=== PATIENT | male | born 1960 | race Caucasian/White ===

== ENCOUNTER 2019-09-09 19:43 | Emergency (ER) | payer OTHER, MEDICAID ==
[~2019-09-09] VITALS: Ht 175.2 cm; Wt 140.9 kg
[~2019-09-09 19:43] MED LIST: ACHD5005 PO; IBP800T PO
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
[2019-09-09] MEDS ORDERED: RT-ALBUTEROL/IPRATROPIUM 3 ML (DUONEB) VIAL INH ONE (20:15)
[2019-09-09 20:20] VITALS: BP 154/89
[2019-09-09 20:22] LABS: BASOPHILS % (AUTO) 0 % (0-10); EOSINOPHILS # (AUTO) 0.2 10^3/uL (0.0-0.3); EOSINOPHILS % (AUTO) 2 % (0-10); HEMATOCRIT 45 % (40-54); HEMOGLOBIN 14.8 G/DL (13.3-17.7); LYMPHOCYTES # (AUTO) 1.6 X 10^3 (1.0-4.0); LYMPHOCYTES % (AUTO) 17 % (12-44); MEAN CORPUSCULAR HEMOGLOBIN 30 PG (25-34); MEAN CORPUSCULAR HGB CONC 33 G/DL (32-36); MEAN CORPUSCULAR VOLUME 91 FL (80-99); MONOCYTES # (AUTO) 0.8 X 10^3 (0.0-1.0); MONOCYTES % (AUTO) 9 % (0-12); NEUTROPHILS # (AUTO) 7.1 X 10^3 (1.8-7.8); NEUTROPHILS % (AUTO) 73 % (42-75); PLATELET COUNT 184 10^3/uL (130-400); RED CELL DISTRIBUTION WIDTH 14.1 % (10.0-14.5); WHITE BLOOD COUNT 9.7 10^3/uL (4.3-11.0)
[2019-09-09 20:41] LABS: ALANINE AMINOTRANSFERASE 26 U/L (0-55); ALBUMIN 4.2 GM/DL (3.2-4.5); ALKALINE PHOSPHATASE 88 U/L (40-136); BILIRUBIN,TOTAL 0.4 MG/DL (0.1-1.0); BUN/CREATININE RATIO 19; CALCIUM 9.1 MG/DL (8.5-10.1); CARBON DIOXIDE 25 MMOL/L (21-32); CHLORIDE 107 MMOL/L (98-107); CREATININE SERUM 1.05 MG/DL (0.60-1.30); GFR ESTIMATED > 60; GLUCOSE 94 MG/DL (70-105); POTASSIUM 4.1 MMOL/L (3.6-5.0); SODIUM 140 MMOL/L (135-145)
== END 2019-09-09 20:33 | disposition left against medical advice (07) ==
LOC: EDUNIT# 19:43 → ER 19:45
DX: R06.00 Dyspnea, unspecified (principal); J44.9 Chronic obstructive pulmonary disease, unspecified; I10 Essential (primary) hypertension; F41.9 Anxiety disorder, unspecified; R40.2142 Coma scale, eyes open, spontaneous, at arrival to emergency department; R40.2252 Coma scale, best verbal response, oriented, at arrival to emergency department; R40.2362 Coma scale, best motor response, obeys commands, at arrival to emergency department; F17.210 Nicotine dependence, cigarettes, uncomplicated; V49.40XA Driver injured in collision with unspecified motor vehicles in traffic accident, initial encounter
CPT/HCPCS: 36415; 80053; 85025; 86141

== ENCOUNTER → 2020-06-10 | Outpatient (CLI) | payer MEDICAID | LOC: CARD 10:56 | PROVIDERS: ATTEND Internal Medicine Cardiovascular Disease | DX: I11.9 Hypertensive heart disease without heart failure (principal); I31.3 Pericardial effusion (noninflammatory); E78.2 Mixed hyperlipidemia; J43.9 Emphysema, unspecified; F17.210 Nicotine dependence, cigarettes, uncomplicated | CPT/HCPCS: 93306 ==

== ENCOUNTER → 2020-08-02 | Outpatient (CLI) | payer MEDICAID | LOC: WOUNDCARE 09:17 | PROVIDERS: ATTEND Surgery | DX: I70.261 Atherosclerosis of native arteries of extremities with gangrene, right leg (principal); L97.513 Non-pressure chronic ulcer of other part of right foot with necrosis of muscle; R73.09 Other abnormal glucose; M65.171 Other infective (teno)synovitis, right ankle and foot; G60.8 Other hereditary and idiopathic neuropathies; I82.501 Chronic embolism and thrombosis of unspecified deep veins of right lower extremity | CPT/HCPCS: 11043; A6260; G0463 ==

== ENCOUNTER → 2020-08-03 | Outpatient (CLI) | payer MEDICAID ==
--- NOTE | 2020-08-03 14:44 | Diagnostic Imaging Report ---
INDICATION: Right leg pain. Right leg venous Doppler study was performed in the routine fashion with color flow Doppler and waveform analysis. FINDINGS: The right common femoral vein, superficial femoral vein, popliteal vein and visualized portion of the tibial veins show normal compressibility and venous flow patterns. There is normal augmentation. IMPRESSION: No evidence of deep vein thrombosis of the major veins of the right leg. Dictated by: Dictated on workstation # [id number]
== END ==
LOC: RAD 13:30
PROVIDERS: ATTEND Surgery
DX: I70.235 Atherosclerosis of native arteries of right leg with ulceration of other part of foot (principal); I82.501 Chronic embolism and thrombosis of unspecified deep veins of right lower extremity; M65.171 Other infective (teno)synovitis, right ankle and foot; G60.8 Other hereditary and idiopathic neuropathies; L97.513 Non-pressure chronic ulcer of other part of right foot with necrosis of muscle; R73.09 Other abnormal glucose

== ENCOUNTER → 2020-08-09 | Outpatient (CLI) | payer MEDICAID | LOC: WOUNDCARE 12:26 | PROVIDERS: ATTEND Surgery | DX: I96 Gangrene, not elsewhere classified (principal); M65.171 Other infective (teno)synovitis, right ankle and foot; G60.8 Other hereditary and idiopathic neuropathies; R73.09 Other abnormal glucose; L97.516 Non-pressure chronic ulcer of other part of right foot with bone involvement without evidence of necrosis | CPT/HCPCS: 11043; G0463 ==

== ENCOUNTER → 2020-08-09 | Outpatient (CLI) | payer MEDICAID | LOC: LAB 13:21 | PROVIDERS: ATTEND Surgery | DX: I70.235 Atherosclerosis of native arteries of right leg with ulceration of other part of foot (principal); L97.513 Non-pressure chronic ulcer of other part of right foot with necrosis of muscle; G60.8 Other hereditary and idiopathic neuropathies; M65.171 Other infective (teno)synovitis, right ankle and foot; I82.501 Chronic embolism and thrombosis of unspecified deep veins of right lower extremity; R73.09 Other abnormal glucose | CPT/HCPCS: 36415; 83036 ==

== ENCOUNTER → 2020-08-16 | Outpatient (CLI) | payer MEDICAID | LOC: WOUNDCARE 12:26 | PROVIDERS: ATTEND Surgery | DX: I96 Gangrene, not elsewhere classified (principal); L97.516 Non-pressure chronic ulcer of other part of right foot with bone involvement without evidence of necrosis; R73.09 Other abnormal glucose; M65.171 Other infective (teno)synovitis, right ankle and foot; G60.8 Other hereditary and idiopathic neuropathies | CPT/HCPCS: 11042; A6207; A6454; G0463 ==

== ENCOUNTER → 2020-08-18 | Outpatient (CLI) | payer MEDICAID | LOC: WOUNDCARE 12:28 | PROVIDERS: ATTEND Surgery | DX: L97.516 Non-pressure chronic ulcer of other part of right foot with bone involvement without evidence of necrosis (principal); G60.8 Other hereditary and idiopathic neuropathies; M65.871 Other synovitis and tenosynovitis, right ankle and foot; R73.09 Other abnormal glucose | CPT/HCPCS: 11043; A6454; G0463 ==

== ENCOUNTER → 2020-08-22 | Outpatient (CLI) | payer MEDICAID | LOC: WOUNDCARE 14:09 | PROVIDERS: ATTEND Surgery | DX: L97.516 Non-pressure chronic ulcer of other part of right foot with bone involvement without evidence of necrosis (principal); G60.8 Other hereditary and idiopathic neuropathies; M65.171 Other infective (teno)synovitis, right ankle and foot; I96 Gangrene, not elsewhere classified; R73.09 Other abnormal glucose | CPT/HCPCS: 11042; A6454; G0463 ==

== ENCOUNTER → 2020-08-29 | Outpatient (CLI) | payer MEDICAID | LOC: WOUNDCARE 13:28 | PROVIDERS: ATTEND Surgery | DX: I96 Gangrene, not elsewhere classified (principal); L97.512 Non-pressure chronic ulcer of other part of right foot with fat layer exposed; G60.8 Other hereditary and idiopathic neuropathies; M65.171 Other infective (teno)synovitis, right ankle and foot | CPT/HCPCS: 11042; A6454; G0463 ==

== ENCOUNTER → 2020-09-05 | Outpatient (CLI) | payer MEDICAID | LOC: WOUNDCARE 13:36 | PROVIDERS: ATTEND Surgery | DX: I96 Gangrene, not elsewhere classified (principal); L97.512 Non-pressure chronic ulcer of other part of right foot with fat layer exposed; G60.8 Other hereditary and idiopathic neuropathies; M65.171 Other infective (teno)synovitis, right ankle and foot | CPT/HCPCS: 11042; A6454; G0463 ==

== ENCOUNTER → 2020-09-14 | Outpatient (CLI) | payer MEDICAID | LOC: WOUNDCARE 14:25 | PROVIDERS: ATTEND Surgery | DX: L97.512 Non-pressure chronic ulcer of other part of right foot with fat layer exposed (principal); G60.8 Other hereditary and idiopathic neuropathies; M65.171 Other infective (teno)synovitis, right ankle and foot; I96 Gangrene, not elsewhere classified | CPT/HCPCS: 11042; A6454; G0463 ==

== ENCOUNTER → 2020-09-19 | Outpatient (CLI) | payer MEDICAID | LOC: WOUNDCARE 13:14 | PROVIDERS: ATTEND Surgery | DX: I96 Gangrene, not elsewhere classified (principal); L97.512 Non-pressure chronic ulcer of other part of right foot with fat layer exposed; G60.8 Other hereditary and idiopathic neuropathies; M65.171 Other infective (teno)synovitis, right ankle and foot | CPT/HCPCS: 11043 ==

== ENCOUNTER → 2020-09-21 | Outpatient (CLI) | payer MEDICAID | LOC: WOUNDCARE 08:21 | PROVIDERS: ATTEND Surgery | DX: I96 Gangrene, not elsewhere classified (principal); L97.512 Non-pressure chronic ulcer of other part of right foot with fat layer exposed; G60.8 Other hereditary and idiopathic neuropathies; M65.171 Other infective (teno)synovitis, right ankle and foot | CPT/HCPCS: 11043; G0463 ==

== ENCOUNTER → 2020-09-26 | Outpatient (CLI) | payer MEDICAID | LOC: WOUNDCARE 13:33 | PROVIDERS: ATTEND Surgery | DX: I96 Gangrene, not elsewhere classified (principal); L97.512 Non-pressure chronic ulcer of other part of right foot with fat layer exposed; M65.171 Other infective (teno)synovitis, right ankle and foot; G60.8 Other hereditary and idiopathic neuropathies | CPT/HCPCS: 11042; G0463 ==

== ENCOUNTER → 2020-10-03 | Outpatient (CLI) | payer MEDICAID | LOC: WOUNDCARE 12:44 | PROVIDERS: ATTEND Surgery | DX: L97.512 Non-pressure chronic ulcer of other part of right foot with fat layer exposed (principal); G60.8 Other hereditary and idiopathic neuropathies; M65.171 Other infective (teno)synovitis, right ankle and foot; I96 Gangrene, not elsewhere classified | CPT/HCPCS: 11042; A6234; G0463 ==

== ENCOUNTER → 2020-10-03 | Outpatient (CLI) | payer MEDICAID ==
[2020-10-03 12:46] LABS: BASOPHILS % (AUTO) 1 % (0-10); EOSINOPHILS # (AUTO) 0.2 10^3/uL (0.0-0.3); EOSINOPHILS % (AUTO) 3 % (0-10); HEMATOCRIT 43 % (40-54); HEMOGLOBIN 13.9 g/dL (13.3-17.7); LYMPHOCYTES # (AUTO) 1.3 10^3/uL (1.0-4.0); LYMPHOCYTES % (AUTO) 21 % (12-44); MEAN CORPUSCULAR HEMOGLOBIN 30 pg (25-34); MEAN CORPUSCULAR HGB CONC 33 g/dL (32-36); MEAN CORPUSCULAR VOLUME 93 fL (80-99); MEAN PLATELET VOLUME 8.6 fL (9.0-12.2); MONOCYTES # (AUTO) 0.6 10^3/uL (0.0-1.0); MONOCYTES % (AUTO) 9 % (0-12); NEUTROPHILS # (AUTO) 4.1 10^3/uL (1.8-7.8); NEUTROPHILS % (AUTO) 65 % (42-75); PLATELET COUNT 143 10^3/uL (130-400); WHITE BLOOD COUNT 6.3 10^3/uL (4.3-11.0)
[2020-10-03 13:11] LABS: ALANINE AMINOTRANSFERASE 26 U/L (0-55); ALBUMIN 3.9 GM/DL (3.2-4.5); ALKALINE PHOSPHATASE 84 U/L (40-136); BILIRUBIN,TOTAL 0.4 MG/DL (0.1-1.0); BUN/CREATININE RATIO 11; CALCIUM 8.6 MG/DL (8.5-10.1); CARBON DIOXIDE 25 MMOL/L (21-32); CHLORIDE 103 MMOL/L (98-107); CREATININE SERUM 0.99 MG/DL (0.60-1.30); GFR ESTIMATED > 60; GLUCOSE 123 MG/DL (70-105); POTASSIUM 4.1 MMOL/L (3.6-5.0); SODIUM 137 MMOL/L (135-145)
== END ==
LOC: LAB 12:31
PROVIDERS: ATTEND Surgery
DX: Z01.89 Encounter for other specified special examinations (principal)
CPT/HCPCS: 36415; 80053; 85025

== ENCOUNTER 2020-10-10 14:09 | Emergency (ER) | payer MEDICAID ==
--- NOTE | 2020-10-10 14:24 | NUR ---
PT STATES UNABLE TO STAY IN ED FOR VISIT HAS PLANS THIS AFTERNOON. EXPLAINED TO PT THAT HE HAD FEVER AND NEEDS TO BE CHECKED. PT STATES IF GETS WORSE WILL COME BACK
== END 2020-10-10 14:24 | disposition left against medical advice (07) ==
LOC: EDUNIT# 14:09 → ER 14:10
DX: R06.02 Shortness of breath (principal); R50.9 Fever, unspecified

== ENCOUNTER → 2020-10-10 | Outpatient (CLI) | payer MEDICAID | LOC: WOUNDCARE 13:02 | PROVIDERS: ATTEND Surgery | DX: I96 Gangrene, not elsewhere classified (principal); L97.512 Non-pressure chronic ulcer of other part of right foot with fat layer exposed; G60.8 Other hereditary and idiopathic neuropathies; M65.871 Other synovitis and tenosynovitis, right ankle and foot; R06.02 Shortness of breath; R50.9 Fever, unspecified | CPT/HCPCS: 11042; A6197; G0463 ==

== ENCOUNTER → 2020-10-17 | Outpatient (CLI) | payer MEDICAID | LOC: WOUNDCARE 13:21 | PROVIDERS: ATTEND Surgery | DX: L97.512 Non-pressure chronic ulcer of other part of right foot with fat layer exposed (principal); G60.8 Other hereditary and idiopathic neuropathies; M65.871 Other synovitis and tenosynovitis, right ankle and foot | CPT/HCPCS: 11042; A6454; G0463 ==

== ENCOUNTER → 2020-10-24 | Outpatient (CLI) | payer MEDICAID ==
--- NOTE | 2020-10-25 08:33 | Diagnostic Imaging Report ---
PROCEDURE: US Bilateral lower extremity arterial. TECHNIQUE: Multiple real-time grayscale images are obtained through both lower extremity arterial systems with color Doppler imaging and color Doppler spectral analysis. 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 CORRELATION STUDY: None FINDINGS: The major arteries of both lower extremities are patent to level of the ankle. There is detectable flow in the dorsalis pedis and posterior tibial arteries of both legs. Overall, there is no appreciable velocity change within the major arteries through the level of the popliteal arteries. Below the tibial peroneal trifurcation, there are various velocity changes, greatest on the right compared to the left. This does raise concern for underlying small vessel disease. There is rather markedly elevated velocity at the dorsalis pedis artery on the right suggestive of narrowing. IMPRESSION: 1. Patency of the major arteries of both lower extremities. The findings do suggest probable small vessel disease below the tibial peroneal trifurcation right greater than left. Dictated by: Dictated on workstation # [id number]
== END ==
LOC: RAD 12:12
PROVIDERS: ATTEND Surgery
DX: I70.235 Atherosclerosis of native arteries of right leg with ulceration of other part of foot (principal); L97.512 Non-pressure chronic ulcer of other part of right foot with fat layer exposed; M65.171 Other infective (teno)synovitis, right ankle and foot; G60.8 Other hereditary and idiopathic neuropathies
CPT/HCPCS: 93925

== ENCOUNTER → 2020-10-26 | Outpatient (CLI) | payer MEDICAID | LOC: WOUNDCARE 14:13 | PROVIDERS: ATTEND Surgery | DX: I96 Gangrene, not elsewhere classified (principal); L97.512 Non-pressure chronic ulcer of other part of right foot with fat layer exposed; G60.8 Other hereditary and idiopathic neuropathies; M65.171 Other infective (teno)synovitis, right ankle and foot | CPT/HCPCS: 11042; A6454; G0463 ==

== ENCOUNTER → 2020-11-07 | Outpatient (CLI) | payer MEDICAID | LOC: WOUNDCARE 13:39 | PROVIDERS: ATTEND Surgery | DX: I96 Gangrene, not elsewhere classified (principal); G60.8 Other hereditary and idiopathic neuropathies; M65.171 Other infective (teno)synovitis, right ankle and foot; L97.512 Non-pressure chronic ulcer of other part of right foot with fat layer exposed | CPT/HCPCS: 11042; A6454; G0463 ==

== ENCOUNTER → 2020-11-17 | Outpatient (CLI) | payer MEDICAID | LOC: WOUNDCARE 13:22 | PROVIDERS: ATTEND Orthopaedic Surgery Hand Surgery | DX: I96 Gangrene, not elsewhere classified (principal); L97.512 Non-pressure chronic ulcer of other part of right foot with fat layer exposed; G60.8 Other hereditary and idiopathic neuropathies; M65.171 Other infective (teno)synovitis, right ankle and foot | CPT/HCPCS: 11042; A6454; G0463 ==

== ENCOUNTER → 2020-11-28 | Outpatient (CLI) | payer MEDICAID | LOC: WOUNDCARE 13:38 | PROVIDERS: ATTEND Orthopaedic Surgery Hand Surgery | DX: I96 Gangrene, not elsewhere classified (principal); M65.871 Other synovitis and tenosynovitis, right ankle and foot; L97.512 Non-pressure chronic ulcer of other part of right foot with fat layer exposed; G60.8 Other hereditary and idiopathic neuropathies | CPT/HCPCS: 11042; G0463 ==

== ENCOUNTER → 2020-12-06 | Outpatient (CLI) | payer MEDICAID | LOC: WOUNDCARE 11:37 | PROVIDERS: ATTEND Surgery | DX: I96 Gangrene, not elsewhere classified (principal); L97.512 Non-pressure chronic ulcer of other part of right foot with fat layer exposed; G60.8 Other hereditary and idiopathic neuropathies; M65.171 Other infective (teno)synovitis, right ankle and foot | CPT/HCPCS: 11042; G0463 ==

== ENCOUNTER → 2021-01-12 | Outpatient (CLI) | payer MEDICAID | LOC: WOUNDCARE 12:48 | PROVIDERS: ATTEND Surgery | DX: I96 Gangrene, not elsewhere classified (principal); L97.512 Non-pressure chronic ulcer of other part of right foot with fat layer exposed; G60.8 Other hereditary and idiopathic neuropathies; M65.871 Other synovitis and tenosynovitis, right ankle and foot | CPT/HCPCS: 11042; A6197; G0463 ==

== ENCOUNTER → 2021-01-25 | Outpatient (CLI) | payer MEDICAID | LOC: WOUNDCARE 14:07 | PROVIDERS: ATTEND Surgery | DX: L97.512 Non-pressure chronic ulcer of other part of right foot with fat layer exposed (principal); G60.8 Other hereditary and idiopathic neuropathies; M65.171 Other infective (teno)synovitis, right ankle and foot | CPT/HCPCS: 99212 ==

== ENCOUNTER 2021-06-13 17:24 | Emergency (ER) | payer MEDICAID ==
[~2021-06-13] VITALS: Ht 172.7 cm; Wt 149.0 kg
[2021-06-13] MEDS ORDERED: LACTATED RINGERS IV PRN (18:00)
--- NOTE | 2021-06-13 18:00 | ED Integumentary General ---
General Chief Complaint: Skin/Wound Problems Stated Complaint: INFECTION IN R FOOT Source: patient Exam Limitations: no limitations History of Present Illness Date Seen by Provider: Jun 13, 2021 Time Seen by Provider: 17:57 Initial Comments To ER with infection in the right foot. History of a diabetic ulcer for which he saw Dr. Leone here at wound care. Was seen at [facility] today and there was concern for an abscess to the right lateral foot plantar surface he was referred to the emergency room. He did report a fever last night. Timing/Duration: week, getting worse Severity: moderate Possible Cause: no cause identified Associated Symptoms: denies symptoms Allergies and Home Medications Allergies Coded Allergies: No Known Drug Allergies (Unverified , 12/30/11) Home Medications Ciprofloxacin HCl 500 Mg Tablet, 500 MG PO BID Prescribed by: ARVIND EASTMAN on 06/13/212012 Doxycycline Hyclate 100 Mg Tablet, 100 MG PO BID Prescribed by: ARVIND EASTMAN on 06/13/212012 Hydrocodone Bit/Acetaminophen 1 Each Tablet, 1-2 EACH PO Q6H PRN Prescribed by: GAYATHRI SU on 12/30/111949 Ibuprofen 800 Mg Tab, 800 MG PO Q8H, (Reported) Patient Home Medication List Home Medication List Reviewed: Yes Review of Systems Review of Systems Constitutional: see HPI EENTM: see HPI Respiratory: no symptoms reported Cardiovascular: no symptoms reported Genitourinary: no symptoms reported Musculoskeletal: no symptoms reported Skin: no symptoms reported Psychiatric/Neurological: No Symptoms Reported Endocrine: No Symptoms Reported Hematologic/Lymphatic: No Symptoms Reported Past Hzxjvne-Txvbpl-Qmbphq Hx Past Medical History Surgeries: Yes Orthopedic Respiratory: Yes COPD Cardiac: Yes Hypertension Endocrine: No Cancer: No Anxiety Integumentary: No Blood Disorders: No Physical Exam Vital Signs Vital Signs - First Documented 06/13/21 17:29 Temp 36.9 Pulse 106 Resp 22 B/P (MAP) 113/75 (88) Pulse Ox 94 O2 Delivery Room Air Capillary Refill : General Appearance: WD/WN, no apparent distress HEENT: PERRL/EOMI, normal ENT inspection Neck: non-tender, full range of motion Respiratory: no respiratory distress, no accessory muscle use Gastrointestinal: normal bowel sounds, non tender Neurologic/Psychiatric: alert, normal mood/affect, oriented x 3 Skin: normal color, warm/dry Skin Problem Location: lower extremities (There is an abscess to the plantar surface of the right foot over the distal aspect of the fifth metatarsal. The overlying skin was removed with an 11 blade scalpel and scissors. Large amount of foul-smelling purulent material was expressed.) Skin Problem Character: abscess Progress/Results/Core Measures Results/Orders Lab Results Laboratory Tests Test 06/13/21 18:00 06/13/21 19:03 Range/Units White Blood Count 13.8 H 4.3-11.0 10^3/uL Red Blood Count 4.62 4.30-5.52 10^6/uL Hemoglobin 13.3 13.3-17.7 g/dL Hematocrit 41 40-54 % Mean Corpuscular Volume 89 80-99 fL Mean Corpuscular Hemoglobin 29 25-34 pg Mean Corpuscular Hemoglobin Concent 33 32-36 g/dL Red Cell Distribution Width 14.5 10.0-14.5 % Platelet Count 166 130-400 10^3/uL Mean Platelet Volume 9.3 9.0-12.2 fL Immature Granulocyte % (Auto) 1 % Neutrophils (%) (Auto) 80 H 42-75 % Lymphocytes (%) (Auto) 11 L 12-44 % Monocytes (%) (Auto) 7 0-12 % Eosinophils (%) (Auto) 1 0-10 % Basophils (%) (Auto) 0 0-10 % Neutrophils # (Auto) 11.1 H 1.8-7.8 10^3/uL Lymphocytes # (Auto) 1.5 1.0-4.0 10^3/uL Monocytes # (Auto) 0.9 0.0-1.0 10^3/uL Eosinophils # (Auto) 0.1 0.0-0.3 10^3/uL Basophils # (Auto) 0.1 0.0-0.1 10^3/uL Immature Granulocyte # (Auto) 0.1 0.0-0.1 10^3/uL Sodium Level 137 135-145 MMOL/L Potassium Level 4.1 3.6-5.0 MMOL/L Chloride Level 100 98-107 MMOL/L Carbon Dioxide Level 27 21-32 MMOL/L Anion Gap 10 5-14 MMOL/L Blood Urea Nitrogen 14 7-18 MG/DL Creatinine 1.00 0.60-1.30 MG/DL Estimat Glomerular Filtration Rate 76 BUN/Creatinine Ratio 14 Glucose Level 113 H 70-105 MG/DL Lactic Acid Level 1.48 0.50-2.00 MMOL/L Calcium Level 8.6 8.5-10.1 MG/DL Corrected Calcium 8.8 8.5-10.1 MG/DL Total Bilirubin 0.6 0.1-1.0 MG/DL Aspartate Amino Transf (AST/SGOT) 33 5-34 U/L Alanine Aminotransferase (ALT/SGPT) 29 0-55 U/L Alkaline Phosphatase 72 40-136 U/L Total Protein 7.0 6.4-8.2 GM/DL Albumin 3.7 3.2-4.5 GM/DL Urine Color YELLOW Urine Clarity CLEAR Urine pH 5.5 5-9 Urine Specific Icard 1.015 L 1.016-1.022 Urine Protein NEGATIVE NEGATIVE Urine Glucose (UA) NEGATIVE NEGATIVE Urine Ketones NEGATIVE NEGATIVE Urine Nitrite NEGATIVE NEGATIVE Urine Bilirubin NEGATIVE NEGATIVE Urine Urobilinogen 0.2 < = 1.0 MG/DL Urine Leukocyte Esterase 1+ H NEGATIVE Urine RBC (Auto) NEGATIVE NEGATIVE Urine RBC NONE /HPF Urine WBC 10-25 H /HPF Urine Crystals PRESENT H /LPF Urine Amorphous Sediment FEW MIGUEL URATES H /LPF Urine Bacteria TRACE /HPF Urine Casts NONE /LPF Urine Mucus SMALL H /LPF Urine Culture Indicated CULTURE PENDING My Orders Orders - ARVIND EASTMAN APRN Cbc With Automated Diff (06/13/21 17:55) Comprehensive Metabolic Panel (06/13/21 17:55) Blood Culture (06/13/21 17:55) Sputum Culture (06/13/21 17:55) Urinalysis (06/13/21 17:55) Urine Culture (06/13/21 17:55) Protime With Inr (06/13/21 17:55) Partial Thromboplastin Time (06/13/21 17:55) Chest 1 View, Ap/Pa Only (06/13/21 17:55) Ed Iv/Invasive Line Start (06/13/21 17:55) Ed Iv/Invasive Line Start (06/13/21 17:55) Vital Signs Adult Sepsis Patie Q15M (06/13/21 17:55) O2 (06/13/21 17:55) Remove Rings In Anticipation O (06/13/21 17:55) Lactic Acid Analyzer (06/13/21 17:55) Lactated Ringers (Lr 1000 Ml Iv Solution (06/13/21 18:00) Foot, Right, 3 View (06/13/21 18:02) Wound Culture (06/13/21 18:04) Ceftriaxone (Rocephin) (06/13/21 19:30) Lactated Ringers (Lr 1000 Ml Iv Solution (06/13/21 19:45) Hydrocodone/Apap 5/325 Tablet (Lortab 5 (06/13/21 19:34) Rx-Hydrocodone/Apap 5-325 Mg (Rx-Vicodin (06/13/21 20:15) Doxycycline Hyclate Tablet (Vibramycin T (06/13/21 20:15) Medications Given in ED Current Medications Medications Dose Ordered Sig/Ziyad Route Start Time Stop Time Status Last Admin Dose Admin Acetaminophen/ Hydrocodone Bitart 1 ea STK-MED ONCE .ROUTE 06/13/21 19:34 06/13/21 19:38 DC 06/13/21 19:39 1 EA Ceftriaxone Sodium 2000 mg/ Sterile Water 20 ml @ 240 mls/hr ONCE ONCE IV 06/13/21 19:30 06/13/21 19:34 DC 06/13/21 19:39 240 MLS/HR Vital Signs/I&O 06/13/21 17:29 Temp 36.9 Pulse 106 Resp 22 B/P (MAP) 113/75 (88) Pulse Ox 94 O2 Delivery Room Air Diagnostic Imaging Diagonstic Imaging: Xray Comments NAME: FAMILIA WARE [facility] REC#: [id number] PT STATUS: REG ER : 1960 PHYSICIAN: ARVIND EASTMAN APRN ADMIT DATE: 06/13/21/ER Draft Date of Exam:06/13/21 FOOT, RIGHT, 3 VIEW INDICATION: Right 5th metatarsal ulceration and redness. TIME OF EXAM: 6:34 PM 3 views of the right foot were obtained. There appears to be a large skin ulcer just lateral to the right 5th MTP joint. The underlying bony structures appear intact. No bony destructive changes are seen to suggest osteomyelitis. No fractures are identified. There is a linear metallic density projected between the webspace of the 1st and 2nd metatarsals. This appears to be plantar based on the lateral view and may represent small foreign body. There are degenerative changes at the 1st MTP joint. Postoperative changes at the ankle are noted. There is dorsal soft tissue swelling. IMPRESSION: 1. Large ulcer crater in the soft tissues lateral to the 5th MTP joint. No underlying bony destructive changes are seen to suggest osteomyelitis. 2. Small linear metallic foreign body at the level of the 1st and 2nd metatarsal webspace plantar. Dictated on workstation # [id number] Dict: 06/13/211853 Trans: 06/13/211903 [facility] [id number] Interpreted by: LINDY SPENCER MD Electronically signed by: Departure Communication (Admissions) 2001-Discussed with him the need for admission but he is insistent that he wants to go home. As such I'll give him some oral doxycycline and Cipro so that he'll have both MRSA and Pseudomonas coverage at home. Family Conversation NAME: FAMILIA WARE MED REC#: [id number] PT STATUS: REG ER : 1960 PHYSICIAN: ARVIND EASTMAN APRN ADMIT DATE: 06/13/21/ER Signed Date of Exam:06/13/21 CHEST 1 VIEW, AP/PA ONLY INDICATION: Sepsis. TECHNIQUE: Single view chest 6:33 PM. CORRELATION STUDY: 08/06/2018 FINDINGS: Heart size enlarged, mediastinum is prominent, appearing increased from prior. Vasculature overall within normal limits. Some hypoventilation with crowding at the lung bases. No nina infiltrate. Old healed right clavicle fracture. IMPRESSION: 1. Heart size and mediastinum are enlarged and more prominent from prior. Etiology and/or significance is indeterminate. When patient is clinically able, a 2-view chest and/or CT imaging would be recommended. 2. Likely area of atelectasis and/or hypoventilation at the lung bases. No nina consolidating infiltrate. Dictated by: Dictated on workstation # [id number] Dict: 06/13/[id number] Trans: 06/13/211909 [facility] [id number] Interpreted by: DEEPAK ROBERTSON DO Electronically signed by: DEEPAK ROBERTSON DO 06/13/211909 NAME: FAMILIA WARE MED REC#: [id number] PT STATUS: REG ER : 1960 PHYSICIAN: ARVIND EASTMAN APRN ADMIT DATE: 06/13/21/ER Draft Date of Exam:06/13/21 FOOT, RIGHT, 3 VIEW INDICATION: Right 5th metatarsal ulceration and redness. TIME OF EXAM: 6:34 PM 3 views of the right foot were obtained. There appears to be a large skin ulcer just lateral to the right 5th MTP joint. The underlying bony structures appear intact. No bony destructive changes are seen to suggest osteomyelitis. No fractures are identified. There is a linear metallic density projected between the webspace of the 1st and 2nd metatarsals. This appears to be plantar based on the lateral view and may represent small foreign body. There are degenerative changes at the 1st MTP joint. Postoperative changes at the ankle are noted. There is dorsal soft tissue swelling. IMPRESSION: 1. Large ulcer crater in the soft tissues lateral to the 5th MTP joint. No underlying bony destructive changes are seen to suggest osteomyelitis. 2. Small linear metallic foreign body at the level of the 1st and 2nd metatarsal webspace plantar. Dictated on workstation # [id number] Dict: 06/13/21 1854 Trans: 06/13/21 1904 [facility] [id number] Interpreted by: LINDY SPENCER MD Electronically signed by: Impression Primary Impression: Ulcer of right foot Additional Impressions: Cellulitis of right leg Foreign body in right foot Disposition: ADMITTED INPATIENT Condition: Stable Departure-Patient Inst. Decision time for Depature: 19:59 Referrals: [facility] (PCP/Family) Primary Care Physician EAN LEONE MD Patient Instructions: Cellulitis (Skin Infection), Adult (DC) Add. Discharge Instructions: . Return promptly to ER for any worsening symptoms such as fevers increasing redness. All discharge instructions reviewed with patient and/or family. Voiced understanding. Scripts Doxycycline Hyclate (Doxycycline Hyclate) 100 Mg Tablet 100 MG PO BID, #14 TAB 0 Refills Prov: ARVIND EASTMAN APRN 06/13/21 Ciprofloxacin HCl (Ciprofloxacin HCl) 500 Mg Tablet 500 MG PO BID, #14 TAB Prov: ARVIND EASTMAN APRN 06/13/21 ARVIND EASTMAN APRN Jun 13, 2021 18:00
[2021-06-13 18:10] LABS: BASOPHILS # (AUTO) 0.1 10^3/uL (0.0-0.1); BASOPHILS % (AUTO) 0 % (0-10); EOSINOPHILS # (AUTO) 0.1 10^3/uL (0.0-0.3); EOSINOPHILS % (AUTO) 1 % (0-10); HEMATOCRIT 41 % (40-54); HEMOGLOBIN 13.3 g/dL (13.3-17.7); LYMPHOCYTES # (AUTO) 1.5 10^3/uL (1.0-4.0); LYMPHOCYTES % (AUTO) 11 % (12-44); MEAN CORPUSCULAR HEMOGLOBIN 29 pg (25-34); MEAN CORPUSCULAR HGB CONC 33 g/dL (32-36); MEAN CORPUSCULAR VOLUME 89 fL (80-99); MEAN PLATELET VOLUME 9.3 fL (9.0-12.2); MONOCYTES # (AUTO) 0.9 10^3/uL (0.0-1.0); MONOCYTES % (AUTO) 7 % (0-12); NEUTROPHILS # (AUTO) 11.1 10^3/uL (1.8-7.8); NEUTROPHILS % (AUTO) 80 % (42-75); PLATELET COUNT 166 10^3/uL (130-400); WHITE BLOOD COUNT 13.8 10^3/uL (4.3-11.0)
[2021-06-13 18:18] LABS: ALBUMIN 3.7 GM/DL (3.2-4.5); POTASSIUM 4.1 MMOL/L (3.6-5.0)
[2021-06-13 18:20] LABS: CALCIUM 8.6 MG/DL (8.5-10.1)
[2021-06-13 18:22] LABS: BILIRUBIN,TOTAL 0.6 MG/DL (0.1-1.0)
--- NOTE | 2021-06-13 19:01 | Diagnostic Imaging Report ---
INDICATION: Sepsis. TECHNIQUE: Single view chest 6:33 PM. CORRELATION STUDY: 08/06/2018 FINDINGS: Heart size enlarged, mediastinum is prominent, appearing increased from prior. Vasculature overall within normal limits. Some hypoventilation with crowding at the lung bases. No nina infiltrate. Old healed right clavicle fracture. IMPRESSION: 1. Heart size and mediastinum are enlarged and more prominent from prior. Etiology and/or significance is indeterminate. When patient is clinically able, a 2-view chest and/or CT imaging would be recommended. 2. Likely area of atelectasis and/or hypoventilation at the lung bases. No nina consolidating infiltrate. Dictated by: Dictated on workstation # [id number]
--- NOTE | 2021-06-13 19:04 | Diagnostic Imaging Report ---
INDICATION: Right 5th metatarsal ulceration and redness. TIME OF EXAM: 6:34 PM 3 views of the right foot were obtained. There appears to be a large skin ulcer just lateral to the right 5th MTP joint. The underlying bony structures appear intact. No bony destructive changes are seen to suggest osteomyelitis. No fractures are identified. There is a linear metallic density projected between the webspace of the 1st and 2nd metatarsals. This appears to be plantar based on the lateral view and may represent small foreign body. There are degenerative changes at the 1st MTP joint. Postoperative changes at the ankle are noted. There is dorsal soft tissue swelling. IMPRESSION: 1. Large ulcer crater in the soft tissues lateral to the 5th MTP joint. No underlying bony destructive changes are seen to suggest osteomyelitis. 2. Small linear metallic foreign body at the level of the 1st and 2nd metatarsal webspace plantar. Dictated by: Dictated on workstation # [id number]
[2021-06-13 19:09] LABS: BILIRUBIN,URINE NEGATIVE (NEGATIVE); CLARITY,URINE CLEAR; COLOR,URINE YELLOW; GLUCOSE, URINE (UA) NEGATIVE (NEGATIVE); KETONES,URINE NEGATIVE (NEGATIVE); LEUKOCYTE ESTERASE ,URINE 1+ (NEGATIVE); NITRITE,URINE NEGATIVE (NEGATIVE); PH,URINE 5.5 (5-9); PROTEIN,URINE NEGATIVE (NEGATIVE)
[2021-06-13 19:25] LABS: AMORPHOUS SEDIMENT,UR FEW AMOR URATES /LPF; BACTERIA,URINE TRACE /HPF
[2021-06-13] MEDS ORDERED: cefTRIAXone 2,000 MG in WATER (STERILE) FOR INJECTION 20 ML IV ONE (19:30)
[2021-06-13] MEDS ORDERED: HYDROcodone/APAP 5 MG/325 MG (LORTAB) TAB ONE (19:34)
[2021-06-13] MEDS ORDERED: LACTATED RINGERS 1,000 ML IV SCH (19:45)
[2021-06-13] MEDS ORDERED: DOXY100T2 PO (20:13)
[2021-06-13] MEDS ORDERED: CIPR500T5 PO (20:13)
[2021-06-13] MEDS ORDERED: DOXYCYCLINE 100 MG (VIBRAMYCIN) TABLET PO SCH (20:15)
[2021-06-13 20:49] VITALS: BP 114/79
== END 2021-06-13 20:50 | disposition other institution (70) ==
LOC: EDUNIT# 17:24 → ER 17:27
DX: E11.621 Type 2 diabetes mellitus with foot ulcer (principal); S90.851A Superficial foreign body, right foot, initial encounter; L03.115 Cellulitis of right lower limb; J44.9 Chronic obstructive pulmonary disease, unspecified; I10 Essential (primary) hypertension; X58.XXXA Exposure to other specified factors, initial encounter
CPT/HCPCS: 36415; 71045; 73630; 80053; 81000; 83605; 85025; 87040; 87070; 87088; 87205

== ENCOUNTER → 2021-06-19 | Outpatient (CLI) | payer MEDICAID ==
[~2021-06-19] MED LIST changes: +CIPR500T5 PO; +DOXY100T2 PO
== END ==
LOC: WOUNDCARE 09:20
PROVIDERS: ATTEND Surgery
DX: E11.621 Type 2 diabetes mellitus with foot ulcer (principal); E11.42 Type 2 diabetes mellitus with diabetic polyneuropathy; L97.512 Non-pressure chronic ulcer of other part of right foot with fat layer exposed; I70.235 Atherosclerosis of native arteries of right leg with ulceration of other part of foot; I89.0 Lymphedema, not elsewhere classified; T65.222A Toxic effect of tobacco cigarettes, intentional self-harm, initial encounter; F17.218 Nicotine dependence, cigarettes, with other nicotine-induced disorders; L03.115 Cellulitis of right lower limb
CPT/HCPCS: 11042; A6197; G0463

== ENCOUNTER → 2021-06-26 | Outpatient (CLI) | payer MEDICAID ==
[~2021-06-26] MED LIST changes: +ALBU1.25 INH; +ALBU90AE2 IH; +BUDE10.26 IH; +CELE-63 PO; +FLUT1AER IH; +LEVO25CA4 PO; +RT-ALBUINH IH; +TIOT18CA2 IH
== END ==
LOC: WOUNDCARE 11:58
PROVIDERS: ATTEND Surgery
DX: E11.621 Type 2 diabetes mellitus with foot ulcer (principal); E11.42 Type 2 diabetes mellitus with diabetic polyneuropathy; L97.512 Non-pressure chronic ulcer of other part of right foot with fat layer exposed; I70.235 Atherosclerosis of native arteries of right leg with ulceration of other part of foot; I89.0 Lymphedema, not elsewhere classified; T65.222A Toxic effect of tobacco cigarettes, intentional self-harm, initial encounter; L03.115 Cellulitis of right lower limb; E11.52 Type 2 diabetes mellitus with diabetic peripheral angiopathy with gangrene; F17.218 Nicotine dependence, cigarettes, with other nicotine-induced disorders
CPT/HCPCS: 11042; G0463

== ENCOUNTER → 2021-06-26 | Outpatient (CLI) | payer MEDICAID ==
[~2021-06-26] MED LIST changes: -ALBU1.25 INH; -ALBU90AE2 IH; -BUDE10.26 IH; -CELE-63 PO; -FLUT1AER IH; -LEVO25CA4 PO; -RT-ALBUINH IH; -TIOT18CA2 IH
== END ==
LOC: LAB 11:36
PROVIDERS: ATTEND Surgery
DX: R73.09 Other abnormal glucose (principal)
CPT/HCPCS: 36415; 83036

== ENCOUNTER → 2021-07-03 | Outpatient (CLI) | payer MEDICAID ==
[~2021-07-03] MED LIST changes: +ALBU1.25 INH; +ALBU90AE2 IH; +BUDE10.26 IH; +CELE-63 PO; +FLUT1AER IH; +LEVO25CA4 PO; +RT-ALBUINH IH; +TIOT18CA2 IH
== END ==
LOC: WOUNDCARE 12:10
PROVIDERS: ATTEND Surgery
DX: E11.621 Type 2 diabetes mellitus with foot ulcer (principal); E11.42 Type 2 diabetes mellitus with diabetic polyneuropathy; L97.512 Non-pressure chronic ulcer of other part of right foot with fat layer exposed; I89.0 Lymphedema, not elsewhere classified; T65.222A Toxic effect of tobacco cigarettes, intentional self-harm, initial encounter; E11.52 Type 2 diabetes mellitus with diabetic peripheral angiopathy with gangrene; F17.218 Nicotine dependence, cigarettes, with other nicotine-induced disorders
CPT/HCPCS: 11042; G0463

== ENCOUNTER 2021-07-04 05:36 | Outpatient (CLI) | payer MEDICAID ==
[~2021-07-04] VITALS: Ht 172.7 cm; Wt 144.2 kg
[~2021-07-04 05:36] MED LIST changes: -ALBU1.25 INH; -ALBU90AE2 IH; -BUDE10.26 IH; -CELE-63 PO; -FLUT1AER IH; -LEVO25CA4 PO; -RT-ALBUINH IH; -TIOT18CA2 IH
[2021-07-06] MEDS ORDERED: LEVO25CA4 PO (13:05)
[2021-07-06] MEDS ORDERED: BUDE10.26 IH (13:05)
[2021-07-06] MEDS ORDERED: TIOT18CA2 IH (13:05)
[2021-07-06] MEDS ORDERED: ALBU90AE2 IH (13:05)
[2021-07-06] MEDS ORDERED: ALBU1.25 INH (13:05)
[2021-07-06] MEDS ORDERED: CELE-63 PO (13:05)
[2021-07-06] MEDS ORDERED: RT-ALBUINH IH (13:05)
[2021-07-06] MEDS ORDERED: FLUT1AER IH (13:05)
== END 2021-07-06 14:12 ==
LOC: PREOP 05:36
PROVIDERS: ATTEND Surgery
DX: Z01.818 Encounter for other preprocedural examination (principal)

== ENCOUNTER → 2021-09-27 | Outpatient (CLI) | payer MEDICAID ==
[~2021-09-27] MED LIST changes: +ALBU1.25 INH; +ALBU90AE2 IH; +BUDE10.26 IH; +CELE-63 PO; +FLUT1AER IH; +LEVO25CA4 PO; +RT-ALBUINH IH; +TIOT18CA2 IH
== END ==
LOC: CARD 15:00
PROVIDERS: ATTEND Nurse Practitioner Family
DX: I51.7 Cardiomegaly (principal)
CPT/HCPCS: 93306

== ENCOUNTER → 2021-10-18 | Outpatient (CLI) | payer MEDICAID ==
[~2021-10-18] MED LIST changes: +REGADENOSON 0.4 MG/5 ML SYR (LEXISCAN) IV ONE
[2021-10-18] MEDS: CATHETER FLUSH 10 ML SYR IV PRN ×2 (07:52→09:18)
[2021-10-18 09:16] VITALS: BP 139/85
--- NOTE | 2021-10-18 11:11 | Cardiology Stress Test Report ---
Stress Test Report Date of Procedure/Referring: Date of Procedure: Oct 18, 2021 PCP Christel Hallman Aprn Admitting Physician Center[facility] Indications: Dyspnea Baseline Heart Rate: 79 Baseline Blood Pressure: Blood Pressure Systolic: 139 Blood Pressure Diastolic: 85 Baseline Vitals Vital Signs Date Time Temp Pulse Resp B/P (MAP) Pulse Ox O2 Delivery O2 Flow Rate FiO2 10/18/21 09:16 79 16 139/85 (103) 95 Room Air Baseline EKG: Baseline EKG: NSR Summary After explaining the procedure to the patient, he signed a consent and then brought to the stress nuclear laboratory. Patient received 0.4 mg Lexiscan for stress test, ECG, heart rate and blood pressure were monitored continuously. Resting and stress dose of radio tracer were injected, imaging was acquired and reviewed in short axis, horizontal long axis and vertical long axis views. TID: 1.15 SSS: 2 SDS: 2 EF: 55 1. Patient tolerated Lexiscan well 2. No significant ischemia or infarction on SPECT images 3. Normal left ventricular size, EF 55% NHAN FLOWER MD Oct 18, 2021 11:11
== END ==
LOC: CARD 07:37
PROVIDERS: ATTEND Nurse Practitioner Family
DX: R06.00 Dyspnea, unspecified (principal); R06.02 Shortness of breath
CPT/HCPCS: 78452; 93017; A9502

== ENCOUNTER 2022-02-28 19:34 | Observation (INO) | payer MEDICAID ==
[~2022-02-28] VITALS: Ht 173 cm; Wt 136.0 kg
[~2022-02-28 19:34] MED LIST changes: -REGADENOSON 0.4 MG/5 ML SYR (LEXISCAN) IV ONE
[2022-02-28] MEDS ORDERED: ASPIRIN 81 MG CHEW (CHILDREN'S ASA) PO ONE (19:45)
[2022-02-28] MEDS ORDERED: NITROGLYCERIN 0.4 MG SL TABS BTL 25'S SL PRN (19:45)
--- NOTE | 2022-02-28 19:47 | ED Chest Pain ---
General Stated Complaint: CHEST PAIN Source: patient (DIFFICULT HISTORIAN) History of Present Illness Date Seen by Provider: Feb 28, 2022 Time Seen by Provider: 19:38 Initial Comments PT ARRIVES VIA POV FROM HOME C/O CHEST PAIN SINCE YESTERDAY WAS SEEN AT [facility] YESTERDAY AND BEGAN HAVING CHEST PAIN WHEN HE ARRIVED THERE AND WAS INSTRUCTED TO GO TO ER--HE REFUSED EMS TRANSPORT AT THAT TIME, AND DID NOT COME TO ER YESTERDAY INSTRUCTED, AND CAME HERE TONIGHT INSTEAD. PAIN IS IN CENTER AND LEFT CHEST AND FEELS LIKE BAD CRAMPS RATES PAIN 4-5/10 AT THIS TIME WORSE WITH EXERTION HAS HAD INCREASED SHORTNESS OF BREATH X 1 WEEK--HAS O2 DEPENDENT COPD AT 2L/NC CONTINOUSLY. DOES NOT HAVE O2 ON ARRIVAL TO ER + SWEATS SINCE YESTERDAY + NAUSEA, NO VOMITING NO INCREASE IN CHRONIC LEG SWELLING--DESCRIBES PERIPHERAL NEUROPATHY--STATES LOWER LEGS AND FEET NUMB AND PAINFUL ALL THE TIME NO PALPITATIONS NO DIZZINESS NO SYNCOPE NO COUGH OR FEVER OR RECENT ILLNESS PT DENIES ANY HISTORY OF CARDIAC PROBLEMS, STATES HE HAD A STRESS TEST "A COUPLE OF MONTHS AGO" WAS DONE BY DR. FLOWER 10/18/21: 1. Patient tolerated Lexiscan well 2. No significant ischemia or infarction on SPECT images 3. Normal left ventricular size, EF 55% HAS NOT FOLLOWED UP WITH CREDIT CASHIER AT ANY TIME PT DENIES ANY HISTORY OF CARDIAC PROBLEMS, OR HTN, OR CHF, OR HYPERLIPIDEMIA OR ARRHYTHMIAS PCP: [facility] Allergies and Home Medications Allergies Coded Allergies: No Known Drug Allergies (Unverified , 12/30/11) Patient Home Medication List Home Medication List Reviewed: Yes Albuterol Sulfate (Albuterol Sulfate) 1.25 Mg/3 Ml Vial.neb, 1.25 MG INH PRN, (Reported) Entered as Reported by: MARIJA HINSON on 07/06/21 1305 Albuterol Sulfate (Proair Hfa) 1 Puff Puff, 2 PUFF IH Q4H PRN for PRN, (Reported) Entered as Reported by: MARIJA HINSON on 07/06/21 1305 Albuterol Sulfate (Proair Digihaler) 90 Mcg Aer.pw.bas, 90 MCG IH OID, (Reported) Entered as Reported by: MARIJA HINSON on 07/06/21 1305 Budesonide/Formoterol Fumarate (Budesonide-Formoterol 160-4.5) 10.2 Gm Hfa.aer.ad, 10.2 GM IH, (Reported) Entered as Reported by: MARIJA HINSON on 07/06/21 130 Celecoxib (Celecoxib) 200 Mg Capsule, 200 MG PO DAILY, (Reported) Entered as Reported by: MARIJA HINSON on 07/06/21 130 Fluticasone/Vilanterol (Breo Ellipta 100-25 Mcg INH) 1 Each Blst.w.dev, 1 EACH IH DAILY, (Reported) Entered as Reported by: MARIJA HINSON on 07/06/21 130 Levothyroxine Sodium (Levothyroxine) 25 Mcg Capsule, 25 MCG PO DAILY, (Reported) Entered as Reported by: MARIJA HINSON on 07/06/21 130 Tiotropium [place] (Spiriva) 1 Inh Aerp, 1 INH IH DAILY, (Reported) Entered as Reported by: MARIJA HINSON on 07/06/21 130 Review of Systems Review of Systems Constitutional: see HPI, diaphoresis; No dizziness EENTM: No Symptoms Reported Respiratory: See HPI, Orthopnea, Shortness of Air, SOA at Rest Cardiovascular: See HPI, Chest Pain, Edema; Denies Lightheadedness, Denies Palpitations, Denies Syncope Gastrointestinal: No Symptoms Reported; Denies Abdominal Pain, Denies Nausea, Denies Vomiting Genitourinary: No Symptoms Reported Musculoskeletal: no symptoms reported Skin: no symptoms reported Psychiatric/Neurological: Anxiety Endocrine: No Symptoms Reported Hematologic/Lymphatic: No Symptoms Reported Past Olvmcnl-Ikjjkf-Jqzlsr Hx Patient Social History Tobacco Use?: Yes Tobacco type used: Cigarettes Substance use?: Yes Substance type: Methamphetamine, Marijuana Additional substance use comme: + IV METH USE Alcohol Use?: Yes Alcohol Frequency: Once in a while Immunizations Up To Date First/Initial COVID19 Vaccinat: 12/25 Past Medical History Surgeries: Yes (RT ARM; RT LEG) Orthopedic Respiratory: Yes (O2 DEPENDENT AT 2L/NC CONTINUOUSLY) COPD Cardiac: Yes Chronic Edema/Swelling, High Cholesterol, Hypertension Neurological: Yes (? PERIPHERAL NEUROPATHY?) Genitourinary: No Gastrointestinal: Yes (HEPATITIS B &C--NO TREATMENT) Chronic Constipation, Hepatitis Musculoskeletal: Yes Arthritis Endocrine: Yes ("PRE-DIABETIC"; MORBID OBESITY) HEENT: Yes (EYE SURGERY DUE TO TRAUMA) Dysphagia, Tinnitis Hearing Impairment: Hard of Hearing, Hearing Aide Left Cancer: No Psychosocial: Yes (impulsive compulsive disorder; POLYSUBSTANCE ABUSE) Anxiety Integumentary: Yes (CHRONIC FOOT ULCER) Blood Disorders: No (HEP. C & B) Adverse Reaction/Blood Tranf: No Family Medical History SOCIAL HISTORY: -SMOKES 1 PPD -ETOH--"OCCASIONAL" USE -DRUGS--HX OF IV METH USE, THC USE--CLAIMS "NO USE FOR YEARS" , BUT UDS + FOR METH AND THC 02/28/22 PAST SURGICAL HISTORY:- -TONSILLECTOMY -RIGHT ARM FRACTURE/ORIF -RIGHT ANKLE FRACTURE/ORIF -EYE SURGERY SECONDARY TO TRAUMA STRESS TEST BY DR. FLOWER 10/18/21: 1. Patient tolerated Lexiscan well 2. No significant ischemia or infarction on SPECT images 3. Normal left ventricular size, EF 55% Physical Exam Vital Signs Vital Signs - First Documented 02/28/22 02/28/22 19:40 20:48 Temp 37.8 Pulse 96 Resp 20 B/P (MAP) 138/95 (109) Pulse Ox 96 O2 Delivery Nasal Cannula O2 Flow Rate 2.00 Capillary Refill : Height, Weight, BMI Height: '" Weight: lbs. oz. kg; 48.34 BMI Method:Stated General Appearance: No Apparent Distress, WD/WN, Obese (MORBIDLY OBESE), Other (MORBIDLY OBESE; DYSPNEIC; TALKS VERY RAPIDLY NON-STOP SPEECH IS MUMBLED. + DIAPHORETIC; FILTHY--HANDS BLACK WITH DIRT, IS CLOTHING, MALODOROUS, AND REEKS OF CIGARETTES. CONSTANT MOVEMENTS--CANT SIT OR LAY STILL. APPEARS TO BE UNDER THE INFLUENCE OF SOME SUBSTANCE/S) Neck: Non Tender Respiratory: Accessory Muscle Use, Decreased Breath Sounds (IN BASES), Other (DYSPNEIC AND HYPERVENTILATION ) Cardiovascular: Regular Rate, Rhythm, No Murmur Gastrointestinal: Soft, Other (VERY LARGE ABDOMEN) Extremity: Pedal Edema (1+ EDEMA) Neurologic/Psychiatric: Alert, Oriented x3, No Motor/Sensory Deficits, mental health unit lead psychologist II- XII Norm as Tested Skin: Normal Color, Warm/Dry, Tattoos/Piercings (EXTENSIVE TATTOOS) Focused Exam Sepsis Stage: Ruled Out Reason for ruling out sepsis: DOES NOT MEET CRITERIA Possible Source: Pulmonary Lactate Level 02/28/22 20:30: Lactic Acid Level 1.09 Time of Focused Exam: 21:30 Respiratory: Normal Breath Sounds, No Accessory Muscle Use, No Respiratory Distress Cardiovascular: Regular Rate, Rhythm Capillary Refill: Less Than 3 Seconds Lactic Acid Level Laboratory Tests Test 02/28/22 20:30 Lactic Acid Level 1.09 MMOL/L (0.50-2.00) Within 3hrs of presentation: Admin fluids, Admin ABX, Blood cultures prior to ABX's, Focus exam, Lactate level Progress/Results/Core Measures Results/Orders Lab Results Laboratory Tests Test 02/28/22 19:50 02/28/22 19:52 02/28/22 20:30 02/28/22 20:35 Range/Units White Blood Count 9.7 4.3-11.0 10^3/uL Red Blood Count 4.85 4.30-5.52 10^6/uL Hemoglobin 14.2 13.3-17.7 g/dL Hematocrit 44 40-54 % Mean Corpuscular Volume 90 80-99 fL Mean Corpuscular Hemoglobin 29 25-34 pg Mean Corpuscular Hemoglobin Concent 33 32-36 g/dL Red Cell Distribution Width 14.3 10.0-14.5 % Platelet Count 173 130-400 10^3/uL Mean Platelet Volume 9.0 9.0-12.2 fL Immature Granulocyte % (Auto) 1 % Neutrophils (%) (Auto) 72 42-75 % Lymphocytes (%) (Auto) 16 12-44 % Monocytes (%) (Auto) 7 0-12 % Eosinophils (%) (Auto) 3 0-10 % Basophils (%) (Auto) 1 0-10 % Neutrophils # (Auto) 7.0 1.8-7.8 10^3/uL Lymphocytes # (Auto) 1.6 1.0-4.0 10^3/uL Monocytes # (Auto) 0.7 0.0-1.0 10^3/uL Eosinophils # (Auto) 0.3 0.0-0.3 10^3/uL Basophils # (Auto) 0.1 0.0-0.1 10^3/uL Immature Granulocyte # (Auto) 0.1 0.0-0.1 10^3/uL Prothrombin Time 13.6 12.2-14.7 SEC INR Comment 1.0 0.8-1.4 Activated Partial Thromboplast Time 31 24-35 SEC D-Dimer 0.47 0.00-0.49 UG/ML Sodium Level 139 135-145 MMOL/L Potassium Level 4.3 3.6-5.0 MMOL/L Chloride Level 101 98-107 MMOL/L Carbon Dioxide Level 26 21-32 MMOL/L Anion Gap 12 5-14 MMOL/L Blood Urea Nitrogen 16 7-18 MG/DL Creatinine 1.08 0.60-1.30 MG/DL Estimat Glomerular Filtration Rate 77 BUN/Creatinine Ratio 15 Glucose Level 120 H 70-105 MG/DL Calcium Level 9.1 8.5-10.1 MG/DL Corrected Calcium 9.2 8.5-10.1 MG/DL Magnesium Level 2.0 1.6-2.4 MG/DL Total Bilirubin 0.3 0.1-1.0 MG/DL Aspartate Amino Transf (AST/SGOT) 23 5-34 U/L Alanine Aminotransferase (ALT/SGPT) 20 0-55 U/L Alkaline Phosphatase 77 40-136 U/L Total Creatine Kinase 258 H 30-200 U/L Creatine Kinase MB 5.6 <6.6 NG/ML Myoglobin 119.4 H 10.0-92.0 NG/ML Troponin I < 0.028 <0.028 NG/ML B-Type Natriuretic Peptide < 10.0 <100.0 PG/ML Total Protein 6.6 6.4-8.2 GM/DL Albumin 3.9 3.2-4.5 GM/DL Amylase Level 42 25-125 U/L Lipase 29 8-78 U/L Serum Alcohol < 10 <10 MG/DL Glucometer 121 H 70-110 MG/DL Lactic Acid Level 1.09 0.50-2.00 MMOL/L Influenza Type A (RT-PCR) Not Detected Not Detecte Influenza Type B (RT-PCR) Not Detected Not Detecte SARS-CoV-2 RNA (RT-PCR) Not Detected Not Detecte My Orders Orders - KATHY VIZCARRA DO Accucheck Stat ONCE (02/28/22 19:44) Ed Iv/Invasive Line Start (02/28/22 19:44) Ekg Tracing (02/28/22 19:44) O2 (02/28/22 19:44) Monitor-Rhythm Ecg Trace Only (02/28/22 19:44) Alcohol (02/28/22 19:44) Amylase (02/28/22:44) Bnp Mccone (02/28/22:44) Cbc With Automated Diff (02/28/22:44) Comprehensive Metabolic Panel (02/28/22:44) Creatine Kinase (02/28/22 19:44) Creatine Kinase Mb (02/28/22:44) Fibrin Degradation Products (02/28/22:44) Drug Screen Stat (Urine) (02/28/22:44) Lipase (02/28/22:44) Magnesium (02/28/22:44) Protime With Inr (02/28/22:44) Partial Thromboplastin Time (02/28/22:44) Ua Culture If Indicated (02/28/22:44) Myoglobin Serum (02/28/22:44) Troponin I Mccone (02/28/22:44) Chest 1 View, Ap/Pa Only (02/28/22:44) Nitroglycerin 0.4 Mg Btl 25's (Nitrostat (02/28/22 19:45) Aspirin Chewable Tablet (Baby Aspirin Ch (02/28/22 19:45) Hemoglobin A1c (02/28/22 20:10) Beta Hydroxybutyrate (02/28/22 20:10) Fibrin Degradation Products (02/28/22 20:20) Procalcitonin (Pct) (02/28/22 20:20) Hs C Reactive Protein (02/28/22 20:20) Blood Culture (02/28/22 20:20) Covid 19 Inhouse Test (02/28/22 20:20) Urinalysis (02/28/22 20:20) Urine Culture (02/28/22 20:20) Protime With Inr (02/28/22 20:20) Acetaminophen Tablet (Tylenol Tablet) (02/28/22 20:30) Ed Iv/Invasive Line Start (02/28/22 20:20) Vital Signs Adult Sepsis Patie Q15M (02/28/22 20:20) Remove Rings In Anticipation O (02/28/22 20:20) Lactic Acid Analyzer (02/28/22 20:20) Influenza A And B By Pcr (02/28/22 20:20) Isolation Central Supply Req (02/28/22 20:20) Ed Iv/Invasive Line Start (02/28/22 20:59) Ns Iv 1000 Ml (Sodium Chloride 0.9%) (02/28/22 21:00) Ns Iv 1000 Ml (Sodium Chloride 0.9%) (02/28/22 21:01) Medications Given in ED Current Medications Medications Dose Ordered Sig/Ziyad Route Start Time Stop Time Status Last Admin Dose Admin Acetaminophen 1,000 mg ONCE PRN PO 02/28/22 20:30 02/28/22 20:33 DC 02/28/22 20:28 1,000 MG Aspirin 324 mg ONCE ONCE PO 02/28/22 19:45 02/28/22 19:47 DC 02/28/22 20:32 324 MG Nitroglycerin 0.4 mg UD PRN SL 02/28/22 19:45 02/28/22 20:33 0.4 MG Vital Signs/I&O 02/28/22 02/28/22 19:40 20:48 Temp 37.8 Pulse 96 Resp 20 B/P (MAP) 138/95 (109) Pulse Ox 96 95 O2 Delivery Nasal Cannula O2 Flow Rate 2.00 Progress Progress Note : Progress Note O2 SAT 92% ON ROOM AIR ON ARRIVAL PLACED ON O2 AT 2L/NC AND O2 SATS UP TO 96% GIVEN ASPIRIN AND NTG X 2 WITH MODERATE RELIED--PAIN DOWN FROM A 5 TO A " 1 1/2", THEN PAIN LATER COMPLETELY RESOLVED WITHOUT FURTHER TREATMENT PT WAS NOTED TO HAVE FEVER SHORTLY AFTER ARRIVAL--PT WAS UNAWARE OF FEVER SEPSIS PROTOCOL INITIATED GIVEN ROCEPHIN FOR UTI NO DETERIORATION IN PT'S CONDITION DURING ER STAY Initial ECG Impression Date: Feb 28, 2022 Initial ECG Impression Time: 19:49 Initial ECG Rate: 91 Initial ECG Rhythm: Normal Sinus Diagnostic Imaging Comments CXR--PER RADIOLOGIST REPORT AT 2052 FINDINGS: Heart size and mediastinal contours are unchanged. There is no identified pneumothorax. There is no large pleural effusion. There are technical limitations of the exam relating to patient body habitus and difficulties with exposure. There is no identified interval focal airspace consolidation. There is a chronic fracture deformity of the right clavicle again noted. There is also heterotopic bone formation adjacent to the inferior aspect of the left clavicle including the expected distribution of the coracoclavicular ligaments consistent with sequela of remote prior injury. IMPRESSION: No identified interval acute cardiopulmonary abnormality. Reviewed: Reviewed by Me Departure Communication (Admissions) 2139--SPOKE WITH DR. LITTLE, ACCEPTS PT FOR ADMIT 2142--SPOKE WITH DR. FLOWER, CREDIT CASHIER, FOR CONSULT. ADVISES LOVENOX. Impression Primary Impression: Chest pain Additional Impressions: Illicit drug use Methamphetamine use Marijuana use COPD O2 DEPENDENT UTI (urinary tract infection) Morbid obesity Disposition: ADMITTED INPATIENT Condition: Improved Admissions Decision to Admit Reason: Admit from ER (General) Decision to Admit/Date: Feb 28, 2022 Time/Decision to Admit Time: 21:40 Departure-Patient Inst. Referrals: [facility] (PCP/Family) Primary Care Physician KATHY VIZCARRA DO Feb 28, 2022 19:47
[2022-02-28 20:00] LABS: BASOPHILS # (AUTO) 0.1 10^3/uL (0.0-0.1); BASOPHILS % (AUTO) 1 % (0-10); EOSINOPHILS # (AUTO) 0.3 10^3/uL (0.0-0.3); EOSINOPHILS % (AUTO) 3 % (0-10); HEMATOCRIT 44 % (40-54); HEMOGLOBIN 14.2 g/dL (13.3-17.7); LYMPHOCYTES # (AUTO) 1.6 10^3/uL (1.0-4.0); LYMPHOCYTES % (AUTO) 16 % (12-44); MEAN CORPUSCULAR HEMOGLOBIN 29 pg (25-34); MEAN CORPUSCULAR HGB CONC 33 g/dL (32-36); MEAN CORPUSCULAR VOLUME 90 fL (80-99); MONOCYTES # (AUTO) 0.7 10^3/uL (0.0-1.0); MONOCYTES % (AUTO) 7 % (0-12); NEUTROPHILS % (AUTO) 72 % (42-75); PLATELET COUNT 173 10^3/uL (130-400); WHITE BLOOD COUNT 9.7 10^3/uL (4.3-11.0)
[2022-02-28 20:12] LABS: ALBUMIN 3.9 GM/DL (3.2-4.5); CHLORIDE 101 MMOL/L (98-107); POTASSIUM 4.3 MMOL/L (3.6-5.0); SODIUM 139 MMOL/L (135-145)
[2022-02-28 20:13] LABS: CALCIUM 9.1 MG/DL (8.5-10.1)
[2022-02-28 20:14] LABS: AMYLASE 42 U/L (25-125)
[2022-02-28 20:15] LABS: GLUCOSE 120 MG/DL (70-105); TOTAL PROTEIN 6.6 GM/DL (6.4-8.2)
[2022-02-28 20:16] LABS: BILIRUBIN,TOTAL 0.3 MG/DL (0.1-1.0); CARBON DIOXIDE 26 MMOL/L (21-32)
[2022-02-28 20:17] LABS: FIBRIN DEGRADATION PRODUCTS 0.47 UG/ML (0.00-0.49); PROTHROMBIN TIME PATIENT 13.6 SEC (12.2-14.7)
[2022-02-28 20:18] LABS: ALKALINE PHOSPHATASE 77 U/L (40-136); CREATININE SERUM 1.08 MG/DL (0.60-1.30); GFR ESTIMATED 77
[2022-02-28 20:19] LABS: BUN/CREATININE RATIO 15
[2022-02-28 20:21] LABS: ALANINE AMINOTRANSFERASE 20 U/L (0-55)
[2022-02-28 20:23] LABS: CREATINE KINASE 258 U/L (30-200); LIPASE 29 U/L (8-78)
[2022-02-28] MEDS ORDERED: ACETAMINOPHEN 500 MG TAB (TYLENOL) PO PRN (20:30)
[2022-02-28 20:32] LABS: CREATINE KINASE MB 5.6 NG/ML (<6.6)
--- NOTE | 2022-02-28 20:36 | Diagnostic Imaging Report ---
EXAMINATION: Chest radiograph, portable AP view. DATE: 02/28/2022 8:12 PM INDICATION: 61-year-old male, chest pain and difficulty breathing. COMPARISON: June 13, 2021. FINDINGS: Heart size and mediastinal contours are unchanged. There is no identified pneumothorax. There is no large pleural effusion. There are technical limitations of the exam relating to patient body habitus and difficulties with exposure. There is no identified interval focal airspace consolidation. There is a chronic fracture deformity of the right clavicle again noted. There is also heterotopic bone formation adjacent to the inferior aspect of the left clavicle including the expected distribution of the coracoclavicular ligaments consistent with sequela of remote prior injury. IMPRESSION: No identified interval acute cardiopulmonary abnormality. Dictated by: Dictated on workstation # [id number]
[2022-02-28] MEDS ORDERED: NS IV 1000 ML 1,000 ML IV SCH (21:00)
[2022-02-28] MEDS ORDERED: NS IV 1000 ML 1,000 ML ONE (21:01)
[2022-02-28 21:32] LABS: BILIRUBIN,URINE NEGATIVE (NEGATIVE); CLARITY,URINE CLEAR; COLOR,URINE YELLOW; GLUCOSE, URINE (UA) NEGATIVE (NEGATIVE); KETONES,URINE NEGATIVE (NEGATIVE); LEUKOCYTE ESTERASE ,URINE 1+ (NEGATIVE); NITRITE,URINE NEGATIVE (NEGATIVE); PROTEIN,URINE NEGATIVE (NEGATIVE)
[2022-02-28 21:41] LABS: BACTERIA,URINE TRACE /HPF; SQUAMOUS EPITHELIAL CELL,UR 0-2 /HPF
[2022-02-28 21:45] LABS: AMPHETAMINE SCREEN, URINE POSITIVE (NEGATIVE); BARBITURATE SCREEN URINE NEGATIVE (NEGATIVE); BENZODIAZEPINES SCREEN URINE NEGATIVE (NEGATIVE); CANNABINOID SCREEN, URINE POSITIVE (NEGATIVE); COCAINE SCREEN URINE NEGATIVE (NEGATIVE); METHADONE STAT NEGATIVE (NEGATIVE); METHAMPHETAMINE SCREEN URINE S POSITIVE (NEGATIVE); OPIATE SCREEN URINE NEGATIVE (NEGATIVE); OXYCODONE STAT NEGATIVE (NEGATIVE); PROPOXYPHENE STAT NEGATIVE (NEGATIVE); TRICYCLIC ANTIDEPRESSANTS SCRE NEGATIVE (NEGATIVE)
[2022-02-28] MEDS ORDERED: ENOXAPARIN 100 MG/1 ML (LOVENOX) SYR SC ONE (21:45)
[2022-02-28] MEDS ORDERED: cefTRIAXone 1 GM PRE-MIX 50 ML IV ONE (21:45)
[2022-03-01 00:15] VITALS: BP 111/69
[2022-03-01 01:23] LABS: FIBRIN DEGRADATION PRODUCTS 0.42 UG/ML (0.00-0.49); PROTHROMBIN TIME PATIENT 13.5 SEC (12.2-14.7)
--- NOTE | 2022-03-01 16:53 | Discharge Summary ---
Diagnosis/Chief Complaint Date of Admission Feb 28, 2022 at 21:15 Date of Discharge Mar 01, 2022 at 00:23 Admission Diagnosis Admission Diagnosis Chest pain UTI BMI 45 Discharge Diagnosis See Above Chief Complaint/HPI Chief Complaint/HPI Patient left AMA prior to being seen Discharge Summary-Simple/Stand Discharge Physical Examination Allergies: Coded Allergies: No Known Drug Allergies (Unverified , 12/30/11) Vitals & I&Os Vital Sign - Last 12Hours Date Time Temp Pulse Resp B/P (MAP) Pulse Ox O2 Delivery O2 Flow Rate FiO2 03/01/22 00:15 36.8 85 22 111/69 (83) 93 Nasal Cannula 2.00 Hospital Course See final discharge diagnosis. Discharge Condition at discharge Left AMA Instructions to patient/family Please see electronic discharge instructions given to patient. Discharge Medications Reviewed and agree with Discharge Medication list on patient's Discharge Instruction sheet Clinical Quality Measures AMI/AHF: ASA po Prior to arrival: LORENA Macias MD Mar 01, 2022 16:53
== END 2022-03-01 00:23 | disposition left against medical advice (07) ==
LOC: EDUNIT# 19:34 → ER 19:38 → CSD 21:15
PROVIDERS: ADMIT Family Medicine; ATTEND Family Medicine
DX: R07.9 Chest pain, unspecified (principal); N39.0 Urinary tract infection, site not specified; E66.01 Morbid (severe) obesity due to excess calories; Z68.42 Body mass index [BMI] 45.0-49.9, adult; J44.9 Chronic obstructive pulmonary disease, unspecified; G62.9 Polyneuropathy, unspecified; F17.210 Nicotine dependence, cigarettes, uncomplicated; F15.90 Other stimulant use, unspecified, uncomplicated; Z20.822 Contact with and (suspected) exposure to COVID-19; F12.90 Cannabis use, unspecified, uncomplicated
CPT/HCPCS: 71045; 80053; 80306; 81000; 82010; 82150; 82550; 82553; 82947; 83036; 83605; 83690; 83735; 83874; 83880; 84145; 84484; 85025; 85379; 85610; 85730; 86141; 87040; 87088; 87636; 93041; G0480; 36415; 80320; 87491; 87591; 93005

== ENCOUNTER 2023-10-07 03:36 | Observation (INO) | payer MEDICARE, MEDICAID ==
[~2023-10-07] VITALS: Ht 172.7 cm; Wt 144.3 kg
[~2023-10-07 03:36] MED LIST changes: +ALBU8.5H6 IH; -CELE-63 PO; +CELE-91 PO; -RT-ALBUINH IH
--- NOTE | 2023-10-07 03:56 | ED Lower Extremity ---
General Stated Complaint: LEFT FOOT BIG TOE INFECTED,SPLIT Source: patient Exam Limitations: no limitations History of Present Illness Date Seen by Provider: Oct 07, 2023 Time Seen by Provider: 03:55 Initial Comments Patient is a 63-year-old male who presents to the emergency room with a chief complaint of large open draining swollen left great toe. He states that he took his boot off tonight and noticed that it was red and draining. He has had a chronic "split" to the medial aspect of the tip of the great toe for quite a long time. He does not recall any direct trauma recently. He wears his boots without socks. He has chronic neuropathy. Morbidly obese with diabetes, hypertension. He smokes, is oxygen dependent on 2 L 27/05. He states yesterday he just felt fatigued, slept all day had subjective fevers and chills. No nausea, vomiting or diarrhea. No urinary complaints. He said there was a diarrheal illness that went through the house about a week ago. He admits to occasional methamphetamine use. Has had some "deep pain" to the left foot. States that he is retaining water but has been taking his Lasix. Came in tonight due to the drainage of the toe. Onset: other (Unsure) Severity: severe Pain/Injury Location: left 1st toe Allergies and Home Medications Allergies Coded Allergies: No Known Drug Allergies (Unverified , 12/30/11) Patient Home Medication List Home Medication List Reviewed: Yes Albuterol Sulfate (Albuterol Sulfate) 1.25 Mg/3 Ml Vial.neb, 1.25 MG INH PRN, (Reported) Entered as Reported by: MARIJA HINSON on 07/06/21 1305 Albuterol Sulfate (Ventolin Hfa) 1 Puff Puff, 2 PUFF IH Q4H PRN for PRN, (Reported) Entered as Reported by: MARIJA HINSON on 07/06/21 1305 Albuterol Sulfate (Proair Digihaler) 90 Mcg Aer.pw.bas, 90 MCG IH OID, (Reported) Entered as Reported by: MARIJA HINSON on 07/06/21 1305 Budesonide/Formoterol Fumarate (Budesonide-Formoterol 160-4.5) 10.2 Gm Hfa.aer.ad, 10.2 GM IH, (Reported) Entered as Reported by: MARIJA HINSON on 07/06/21 1305 Celecoxib (Celecoxib) 200 Mg Capsule, 200 MG PO DAILY, (Reported) Entered as Reported by: MARIJA HINSON on 07/06/21 1305 Fluticasone/Vilanterol (Breo Ellipta 100-25 Mcg INH) 1 Each Blst.w.dev, 1 EACH IH DAILY, (Reported) Entered as Reported by: MARIJA HINSON on 07/06/21 1305 Levothyroxine Sodium (Levothyroxine) 25 Mcg Capsule, 25 MCG PO DAILY, (Reported) Entered as Reported by: MARIJA HINSON on 07/06/21 1305 Tiotropium [place] (Spiriva) 1 Inh Aerp, 1 INH IH DAILY, (Reported) Entered as Reported by: MARIJA HINSON on 07/06/21 1305 Review of Systems Constitutional: see HPI Respiratory: short of breath (Chronic) Cardiovascular: No chest pain Gastrointestinal: no symptoms reported Genitourinary: no symptoms reported Musculoskeletal: joint pain (Left great toe) Skin: other (Wound) Psychiatric/Neurological: Paresthesia (Neuropathy) Past Gccrkxn-Jfzwrh-Lmpnav Hx Immunizations Up To Date First/Initial COVID19 Vaccinat: 02/22 Past Medical History Surgeries: Yes (RT ARM; RT LEG) Orthopedic Respiratory: Yes (O2 DEPENDENT AT 2L/NC CONTINUOUSLY) COPD Cardiac: Yes Chronic Edema/Swelling, High Cholesterol, Hypertension Neurological: Yes (? PERIPHERAL NEUROPATHY?) Genitourinary: No Gastrointestinal: Yes (HEPATITIS B &C--NO TREATMENT) Chronic Constipation, Hepatitis Musculoskeletal: Yes Arthritis Endocrine: Yes ("PRE-DIABETIC"; MORBID OBESITY) HEENT: Yes (EYE SURGERY DUE TO TRAUMA) Dysphagia, Tinnitis Hearing Impairment: Hard of Hearing, Hearing Aide Left Cancer: No Psychosocial: Yes (impulsive compulsive disorder; POLYSUBSTANCE ABUSE) Anxiety Integumentary: Yes (CHRONIC FOOT ULCER) Blood Disorders: No (HEP. C & B) Adverse Reaction/Blood Tranf: No Family Medical History SOCIAL HISTORY: -SMOKES 1 PPD -ETOH--"OCCASIONAL" USE -DRUGS--HX OF IV METH USE, THC USE--CLAIMS "NO USE FOR YEARS" , BUT UDS + FOR METH AND THC 02/28/22 PAST SURGICAL HISTORY:- -TONSILLECTOMY -RIGHT ARM FRACTURE/ORIF -RIGHT ANKLE FRACTURE/ORIF -EYE SURGERY SECONDARY TO TRAUMA STRESS TEST BY DR. FLOWER 10/18/21: 1. Patient tolerated Lexiscan well 2. No significant ischemia or infarction on SPECT images 3. Normal left ventricular size, EF 55% Physical Exam Vital Signs Vital Signs - First Documented 10/07/23 10/07/23 03:47 03:50 Temp 37.3 Pulse 91 Resp 20 Pulse Ox 90 O2 Delivery Room Air O2 Flow Rate 2.00 Capillary Refill : Height, Weight, BMI Height: '" Weight: lbs. oz. kg; 45.00 BMI Method:Stated General Appearance: WD/WN, no apparent distress, obese HEENT: PERRL/EOMI Cardiovascular: regular rate, rhythm Respiratory: lungs clear, normal breath sounds, no respiratory distress, no accessory muscle use, other (Breath sounds diminished due to size/obesity) Gastrointestinal: normal bowel sounds Hips: bilateral hip normal range of motion Legs: bilateral leg swelling Ankles: bilateral ankle swelling Feet: left foot ecchymosis, left foot infection, left foot nail injury, left foot pain, left foot soft tissue tenderness, left foot swelling, left foot other (Maceration of the skin of the great toe, the toenail is loose and appears to have purulent subungual fluid. Quite edematous) Neurologic/Psychiatric: alert, normal mood/affect, oriented x 3 Skin: normal color, warm/dry, other (See above extremity/foot exam) Progress/Results/Core Measures Results/Orders Lab Results Laboratory Tests Test 10/07/23 04:20 Range/Units White Blood Count 10.5 4.3-11.0 10^3/uL Red Blood Count 4.75 4.30-5.52 10^6/uL Hemoglobin 13.9 13.3-17.7 g/dL Hematocrit 43 40-54 % Mean Corpuscular Volume 90 80-99 fL Mean Corpuscular Hemoglobin 29 25-34 pg Mean Corpuscular Hemoglobin Concent 33 32-36 g/dL Red Cell Distribution Width 13.8 10.0-14.5 % Platelet Count 181 130-400 10^3/uL Mean Platelet Volume 8.8 L 9.0-12.2 fL Immature Granulocyte % (Auto) 1 % Neutrophils (%) (Auto) 73 42-75 % Lymphocytes (%) (Auto) 15 12-44 % Monocytes (%) (Auto) 8 0-12 % Eosinophils (%) (Auto) 2 0-10 % Basophils (%) (Auto) 1 0-10 % Neutrophils # (Auto) 7.7 1.8-7.8 10^3/uL Lymphocytes # (Auto) 1.6 1.0-4.0 10^3/uL Monocytes # (Auto) 0.9 0.0-1.0 10^3/uL Eosinophils # (Auto) 0.2 0.0-0.3 10^3/uL Basophils # (Auto) 0.1 0.0-0.1 10^3/uL Immature Granulocyte # (Auto) 0.1 0.0-0.1 10^3/uL Erythrocyte Sedimentation Rate 32 H 0-30 MM/HR Prothrombin Time 16.4 H 12.2-14.7 SEC INR Comment 1.3 0.8-1.4 Activated Partial Thromboplast Time 36 H 24-35 SEC Sodium Level 139 135-145 MMOL/L Potassium Level 3.9 3.6-5.0 MMOL/L Chloride Level 104 98-107 MMOL/L Carbon Dioxide Level 25 21-32 MMOL/L Anion Gap 10 5-14 MMOL/L Blood Urea Nitrogen 10 7-18 MG/DL Creatinine 0.86 0.60-1.30 MG/DL Estimat Glomerular Filtration Rate 96 BUN/Creatinine Ratio 12 Glucose Level 91 70-105 MG/DL Lactic Acid Level 1.40 0.50-2.00 MMOL/L Calcium Level 8.7 8.5-10.1 MG/DL Corrected Calcium 8.8 8.5-10.1 MG/DL Total Bilirubin 0.4 0.1-1.0 MG/DL Aspartate Amino Transf (AST/SGOT) 17 5-34 U/L Alanine Aminotransferase (ALT/SGPT) 18 0-55 U/L Alkaline Phosphatase 77 40-136 U/L Total Protein 7.0 6.4-8.2 GM/DL Albumin 3.9 3.2-4.5 GM/DL My Orders Orders - MARTINEZ ROLON MD Cbc And Automated Diff (10/07/23 04:06) Comprehensive Metabolic Panel (10/07/23 04:06) Blood Culture (10/07/23 04:06) Sputum Culture (10/07/23 04:06) Urinalysis (10/07/23 04:06) Urine Culture (10/07/23 04:06) Protime With Inr (10/07/23 04:06) Partial Thromboplastin Time (10/07/23 04:06) Chest 1 View, Ap/Pa Only (10/07/23 04:06) Ed Iv/Invasive Line Start (10/07/23 04:06) Ed Iv/Invasive Line Start (10/07/23 04:06) Vital Signs Adult Sepsis Patie Q15M (10/07/23 04:06) O2 (10/07/23 04:06) Remove Rings In Anticipation O (10/07/23 04:06) Lactic Acid Analyzer (10/07/23 04:06) Erythrocyte Sedimentation Rate (10/07/23 04:06) Toe(S) (10/07/23 04:06) Ns Iv 1000 Ml (Ns Iv 1000 Ml) (10/07/23 04:15) Piperacillin/Tazobactam (Piperacillin/Ta (10/07/23 04:15) Vancomycin Injection (Vancomycin Injecti (10/07/23 04:15) Medications Given in ED Current Medications Medications Dose Ordered Sig/Ziyad Route Start Time Stop Time Status Last Admin Dose Admin Piperacillin Sod/ Tazobactam Sod 4.5 gm/Sodium Chloride 100 ml @ 200 mls/hr ONCE ONCE IV 10/07/23 04:15 10/07/23 04:44 DC 10/07/23 04:35 200 MLS/HR Vancomycin HCl 1000 mg/Sodium Chloride 250 ml @ 250 mls/hr ONCE ONCE IV 10/07/23 04:15 10/07/23 05:14 DC 10/07/23 05:10 250 MLS/HR Vital Signs/I&O 10/07/23 10/07/23 03:47 03:50 Temp 37.3 Pulse 91 Resp 20 B/P (MAP) Pulse Ox 90 96 O2 Delivery Room Air Nasal Cannula O2 Flow Rate 2.00 Admisison Planning May Need Admission (Planning): 04:12 Progress Progress Note : Time: 05:41 Progress Note Patient seen and evaluated by me, evaluation today includes history and physical exam with "sepsis protocol" to include CBC, comprehensive metabolic panel, coag profile, blood cultures with lactic acid, UA and urine culture ordered, single view chest x-ray, 2 views of the left great toe, sed rate. Pertinent physical exam findings well-developed well-nourished morbidly obese male with stable vital signs, heart rate is 93, blood pressure 120/75, slightly labored breathing due to obesity. Heart is regular, lung sounds diminished. 2+ lower extremity edema. Left great toe edematous, painful to manipulation macerated erythematous draining purulent material. Toenail is loose and there is a significant amount of purulence under the nail. Differential diagnosis includes cellulitis, abscess, osteomyelitis, wet gangrene Labs independently reviewed and interpreted by me. His CBC is actually normal, his comprehensive metabolic panel is all within normal limits, normal renal function. His sed rate is 32. Lactic acid is normal. Coag panel is normal. Single view chest x-ray shows findings consistent with advanced COPD on my interpretation. His toe x-ray shows degenerative arthritis in the joints of the foot with no obvious periosteal elevation. Secondary to his morbid obesity relative immobility, "prediabetes" he was placed on Zosyn and vancomycin for presumptive early osteomyelitis. I think it would be prudent to have early wound care and surgical evaluation. Patient case was discussed with Dr. Lien Vanessa who is the resident on for [facility]. She accepts patient for admission to the medical floor. Bridge orders have been written Diagnostic Imaging Diagonstic Imaging: Xray Plain Films/CT/US/NM/MRI: chest Comments Single view chest x-ray independently reviewed and interpreted by me, cardiomegaly, chronic changes of COPD, no consolidative infiltrate Diagonstic Imaging: Xray Comments X-ray left foot, great toe no obvious periosteal elevation, arthritic change Departure Communication (Admissions) Time/Spoke to Admitting Phy: 05:[address] Pepe - resident for [facility] Clinic Impression Primary Impression: Cellulitis and abscess of toe of left foot Disposition: ADMITTED INPATIENT Condition: Stable Admissions Decision to Admit Reason: Admit from ER (General) Decision to Admit/Date: Oct 07, 2023 Time/Decision to Admit Time: 05:40 Departure-Patient Inst. Referrals: ALVIN WAITE DO (PCP) Primary Care Physician [facility] (Family) Primary Care Physician MARTINEZ ROLON MD Oct 07, 2023 03:55
[2023-10-07] MEDS ORDERED: NS IV 1000 ML 1,000 ML IV SCH (04:15)
[2023-10-07] MEDS ORDERED: PIPERACILLIN/Tazobactam 4.5 GM in NS (IVPB) 100 ML 100 ML IV ONE (04:15)
[2023-10-07] MEDS ORDERED: VANCOMYCIN INJECTION 1,000 MG in NS (IVPB) 250 ML 250 ML IV ONE (04:15)
[2023-10-07 04:31] LABS: BASOPHILS # (AUTO) 0.1 10^3/uL (0.0-0.1); BASOPHILS % (AUTO) 1 % (0-10); EOSINOPHILS # (AUTO) 0.2 10^3/uL (0.0-0.3); EOSINOPHILS % (AUTO) 2 % (0-10); HEMATOCRIT 43 % (40-54); HEMOGLOBIN 13.9 g/dL (13.3-17.7); LYMPHOCYTES # (AUTO) 1.6 10^3/uL (1.0-4.0); LYMPHOCYTES % (AUTO) 15 % (12-44); MEAN CORPUSCULAR HEMOGLOBIN 29 pg (25-34); MEAN CORPUSCULAR HGB CONC 33 g/dL (32-36); MEAN CORPUSCULAR VOLUME 90 fL (80-99); MEAN PLATELET VOLUME 8.8 fL (9.0-12.2); MONOCYTES # (AUTO) 0.9 10^3/uL (0.0-1.0); MONOCYTES % (AUTO) 8 % (0-12); NEUTROPHILS # (AUTO) 7.7 10^3/uL (1.8-7.8); NEUTROPHILS % (AUTO) 73 % (42-75); PLATELET COUNT 181 10^3/uL (130-400); WHITE BLOOD COUNT 10.5 10^3/uL (4.3-11.0)
[2023-10-07 04:41] LABS: INR 1.3 (0.8-1.4); PROTHROMBIN TIME PATIENT 16.4 SEC (12.2-14.7)
[2023-10-07 04:44] LABS: ALBUMIN 3.9 GM/DL (3.2-4.5); POTASSIUM 3.9 MMOL/L (3.6-5.0)
[2023-10-07 04:45] LABS: CALCIUM 8.7 MG/DL (8.5-10.1)
[2023-10-07 04:48] LABS: BILIRUBIN,TOTAL 0.4 MG/DL (0.1-1.0)
[2023-10-07 04:50] LABS: CREATININE SERUM 0.86 MG/DL (0.60-1.30)
[2023-10-07 04:55] LABS: ERYTHROCYTE SEDIMENTATION RATE 32 MM/HR (0-30)
--- NOTE | 2023-10-07 06:20 | Diagnostic Imaging Report ---
INDICATION: 63-year-old male with fever, chills, history of osteomyelitis. COMPARISONS: 02/25/2022. FINDINGS: Single view of the chest is underpenetrated. Cardiac contour is borderline enlarged. There is central venous congestion with scattered perihilar and bibasilar infiltrates but no confluent consolidations. There is no effusion or pneumothorax. Soft tissues and bony thorax are unchanged. There is a previous right clavicle fracture which has healed with deformity. IMPRESSION: 1. Central venous congestion with some scattered perihilar and bibasilar infiltrates. These findings are accentuated by the portable technique and low lung volumes. Additional nonemergent findings as described above. Dictated by: Dictated on workstation # [id number]
--- NOTE | 2023-10-07 06:31 | Diagnostic Imaging Report ---
INDICATION: A 63-year-old male infected wound great toe left foot for last 2 years. COMPARISONS: None FINDINGS: 3 views of the left foot show some degenerative changes of the DIP joint of the left great toe. There is otherwise no evidence of new or healing fractures, bony destruction or remodeling. Overlying soft tissue swelling of the great toe left foot noted. IMPRESSION: Degenerative joint disease at the DIP joint left great toe with overlying soft tissue swelling but no evidence of acute fracture, subluxation, bony destruction or remodeling. Dictated by: Dictated on workstation # [id number]
[2023-10-07] MEDS ORDERED: HYDROcodone/ACETAMINOPHEN 5 MG/325 MG TABLET PO PRN (07:00)
[2023-10-07] MEDS ORDERED: VANCOMYCIN 1 GM/NS 250 ML IVPB IV ONE ×2 (07:00)
[2023-10-07] MEDS ORDERED: IBUPROFEN 600 MG TABLET PO PRN (07:00)
[2023-10-07 08:04] VITALS: BP 119/67
--- NOTE | 2023-10-07 08:05 | Consultation - Surgery ---
ZULY MALDONADO 10/07/23 0805: History of Present Illness History of Present Illness Patient Consulted On(sara/time) 10/07/23 08:00 History of Present Illness Pt is here with a L great toe wound. Pt has dry, swollen feet b\\l and after a bath three days ago he picked off some of the dry skin on his L great toe and he also had a blister. Last night, he noticed bleeding, swelling, and redness of his toe after taking his shoe off. He has not noticed any pus just bleeding. He has pain in his feet and legs that is a dull pain with electric shock like pain that can be a 8/10. He has muscle cramps and aches on his feet. He denies hitting or dropping anything on his toes. He has never had anything happen to his toe like this before. He reports that he has chronic foot pain and has had trouble walking on his feet for a couple years. He is on Xarelto, took it last yesterday. He ate breakfast this morning. He is on 2 L of oxygen at home. Allergies and Home Medications Allergies Coded Allergies: No Known Drug Allergies (Unverified , 12/30/11) Patient Home Medication List Albuterol Sulfate (Albuterol Sulfate) 1.25 Mg/3 Ml Vial.neb, 1.25 MG INH PRN, (Reported) Entered as Reported by: MARIJA HINSON on 07/06/21 1305 Albuterol Sulfate (Ventolin Hfa) 1 Puff Puff, 2 PUFF IH Q4H PRN for PRN, (Reported) Entered as Reported by: MARIJA HINSON on 07/06/21 1305 Albuterol Sulfate (Proair Digihaler) 90 Mcg Aer.pw.bas, 90 MCG IH OID, (Reported) Entered as Reported by: MARIJA HINSON on 07/06/21 1305 Budesonide/Formoterol Fumarate (Budesonide-Formoterol 160-4.5) 10.2 Gm Hfa.aer.ad, 10.2 GM IH, (Reported) Entered as Reported by: MARIJA HINSON on 07/06/21 1305 Celecoxib (Celecoxib) 200 Mg Capsule, 200 MG PO DAILY, (Reported) Entered as Reported by: MARIJA HINSON on 07/06/21 1305 Clindamycin HCl (Clindamycin HCl) 300 Mg Capsule, 300 MG PO TID Prescribed by: ELY ALVARADO on 10/07/23 1421 Fluticasone/Vilanterol (Breo Ellipta 100-25 Mcg INH) 1 Each Blst.w.dev, 1 EACH IH DAILY, (Reported) Entered as Reported by: MARIJA HINSON on 07/06/21 1305 Levothyroxine Sodium (Levothyroxine) 25 Mcg Capsule, 25 MCG PO DAILY, (Reported) Entered as Reported by: MARIJA HINSON on 07/06/21 1305 Tiotropium [place] (Spiriva) 1 Inh Aerp, 1 INH IH DAILY, (Reported) Entered as Reported by: MARIJA HINSON on 07/06/21 1305 Past Sobeovt-Aoqwfc-Ulrxda Hx Patient Social History Drug of Choice: weed Smoking Status: Current Everyday Smoker Type Used: Cigarettes 2nd Hand Smoke Exposure: Yes Recent Hopitalizations: No Alcohol Use?: No Substance type: Marijuana Immunizations Up To Date Date of Pneumonia Vaccine: Jul 19, 2020 Surgeries History of Surgeries: Yes (RT ARM; RT LEG) Surgeries: Orthopedic Respiratory History of Respiratory Disorde: Yes (O2 DEPENDENT AT 2L/NC CONTINUOUSLY) Respiratory Disorders: Pulmonary Embolism, COPD Cardiovascular History of Cardiac Disorders: Yes Cardiac Disorders: Chronic Edema/Swelling, Hypertension Neurological History of Neurological Disord: Yes (? PERIPHERAL NEUROPATHY?) Genitourinary History of Genitourinary Disor: No Gastrointestinal History of Gastrointestinal Di: Yes (HEPATITIS B &C--NO TREATMENT) Gastrointestinal Disorders: Chronic Constipation, Hepatitis Musculoskeletal History of Musculoskeletal Dis: Yes Musculoskeletal Disorders: Arthritis Endocrine History of Endocrine Disorders: Yes ("PRE-DIABETIC"; MORBID OBESITY) HEENT History of HEENT Disorders: Yes (EYE SURGERY DUE TO TRAUMA) HEENT Disorders: Dysphagia, Tinnitis Hearing Impairment: Hard of Hearing, Hearing Aide Left Cancer History of Cancer: No Psychosocial History of Psychiatric Problem: Yes (impulsive compulsive disorder; POLYSUBSTANCE ABUSE) Behavioral Health Disorders: Anxiety Integumentary History of Skin or Integumenta: Yes (CHRONIC FOOT ULCER) Blood Transfusions History of Blood Disorders: No (HEP. C & B) Adverse Reaction to a Blood Tr: No Family Medical History Significant Family History: Asthma (sister), Heart Disease (CHF- mom, sisters), COPD (sister and mom), Diabetes (both grandmothers ), Stroke (father) Review of Systems-General Constitutional: No chills, No fever EENTM: hearing loss; No ear pain, No throat pain Respiratory: cough, phlegm (yellow), wheezing Cardiovascular: No chest pain, No palpitations Gastrointestinal: No abdominal pain, No diarrhea, No nausea, No vomiting Genitourinary: No dysuria, No frequency, No hematuria Musculoskeletal: joint pain (knee pain, arthritis), muscle cramps, other (foot pain) Skin: other (L great toe has lesion with blister and swelling and erythema) Psychiatric/Neurological: Denies Headache; Numbness (no feeling in feet) Physical Exam-General Problems Physical Exam Vital Signs Vital Signs - First Documented 10/07/23 10/07/23 10/07/23 03:47 03:50 06:18 Temp 37.3 Pulse 91 Resp 20 B/P (MAP) 104/86 Pulse Ox 90 O2 Delivery Room Air O2 Flow Rate 2.00 Capillary Refill : Less Than 3 Seconds General Appearance: WD/WN, obese HEENT: PERRL/EOMI, pharynx normal; No pale conjunctivae (R), No pale conjunctivae (L) Neck: non-tender, supple Respiratory: no respiratory distress, no accessory muscle use, wheezing (BL, expiratory) Cardiovascular: regular rate, rhythm, no murmur Gastrointestinal: non tender, soft, hernia (umbilical hernia) Extremities: pedal edema, other (dry swollen R great toe; erythematous, swollen L great toe with black on distal toe with a cut on distal end near toenail. There is a blister on the top of the L great toe near the toenail. Joint looks swollen, there is some softness on the anterior of the L great toe) Neurologic/Psychiatric: alert, oriented x 3 Skin: warm/dry, other (brown discoloration on R anterior LE), tattoos/piercings Data Review Labs Laboratory Tests 10/07/23 04:20: White Blood Count 10.5, Red Blood Count 4.75, Hemoglobin 13.9, Hematocrit 43, Mean Corpuscular Volume 90, Mean Corpuscular Hemoglobin 29, Mean Corpuscular Hemoglobin Concent 33, Red Cell Distribution Width 13.8, Platelet Count 181, Mean Platelet Volume 8.8L, Immature Granulocyte % (Auto) 1, Neutrophils (%) (Auto) 73, Lymphocytes (%) (Auto) 15, Monocytes (%) (Auto) 8, Eosinophils (%) (Auto) 2, Basophils (%) (Auto) 1, Neutrophils # (Auto) 7.7, Lymphocytes # (Auto) 1.6, Monocytes # (Auto) 0.9, Eosinophils # (Auto) 0.2, Basophils # (Auto) 0.1, Immature Granulocyte # (Auto) 0.1, Erythrocyte Sedimentation Rate 32H, Prothrombin Time 16.4H, INR Comment 1.3, Activated Partial Thromboplast Time 36H , Sodium Level 139, Potassium Level 3.9, Chloride Level 104, Carbon Dioxide Lev el 25, Anion Gap 10, Blood Urea Nitrogen 10, Creatinine 0.86, Estimat Glomerular Filtration Rate 96, BUN/Creatinine Ratio 12, Glucose Level 91, Lactic Acid Level 1.40, Calcium Level 8.7, Corrected Calcium 8.8, Total Bilirubin 0.4, Aspartate Amino Transf (AST/SGOT) 17, Alanine Aminotransferase (ALT/SGPT) 18, Alkaline Phosphatase 77, Total Protein 7.0, Albumin 3.9 Assessment/Plan Assessment/Plan Assessment/Plan L great toe laceration- potential for abscess or cellulitis COPD- oxygen dependent, 2 L of O2 at home Obesity Neuropathy of feet Tobacco use Arthritis * Possibly I &D of L great toe * Wound care consult * Continue oxygen * Prophylatic abx- on vanc and zosyn * will get US of L great toe- if no sign of fluid collection or abscess can do as outpatient procedure SHAY BOGGS DO 10/07/237: History of Present Illness History of Present Illness Time Seen by Provider: 12:36 History of Present Illness Surgery asked to consult regarding Left great toe Abscess/Wound HPI per ED: Patient is a 63-year-old male who presents to the emergency room with a chief complaint of large open draining swollen left great toe. He states that he took his boot off tonight and noticed that it was red and draining. He has had a chronic "split" to the medial aspect of the tip of the great toe for quite a long time. He does not recall any direct trauma recently. He wears his boots without socks. He has chronic neuropathy. Morbidly obese with diabetes, hypertension. He smokes, is oxygen dependent on 2 L 27/05. He states yesterday he just felt fatigued, slept all day had subjective fevers and chills. No nausea, vomiting or diarrhea. No urinary complaints. He said there was a diarrheal illness that went through the house about a week ago. He admits to occasional methamphetamine use. Has had some "deep pain" to the left foot. States that he is retaining water but has been taking his Lasix. Came in tonight due to the drainage of the toe. When I saw pt he was asking if he had to stay. He states "I have been trying for 5 years to get something done with this foot. He states his boots are tight. Allergies and Home Medications Allergies Coded Allergies: No Known Drug Allergies (Unverified , 12/30/11) Patient Home Medication List Home Medication List Reviewed: Yes Albuterol Sulfate (Albuterol Sulfate) 1.25 Mg/3 Ml Vial.neb, 1.25 MG INH PRN, (Reported) Entered as Reported by: MARIJA HINSON on 07/06/21 1305 Albuterol Sulfate (Ventolin Hfa) 1 Puff Puff, 2 PUFF IH Q4H PRN for PRN, (Reported) Entered as Reported by: MARIJA HINSON on 07/06/21 1305 Albuterol Sulfate (Proair Digihaler) 90 Mcg Aer.pw.bas, 90 MCG IH OID, (Reported) Entered as Reported by: MARIJA HINSON on 07/06/21 1305 Budesonide/Formoterol Fumarate (Budesonide-Formoterol 160-4.5) 10.2 Gm Hfa.aer.ad, 10.2 GM IH, (Reported) Entered as Reported by: MARIJA HINSON on 07/06/21 1305 Celecoxib (Celecoxib) 200 Mg Capsule, 200 MG PO DAILY, (Reported) Entered as Reported by: MARIJA HINSON on 07/06/21 1305 Clindamycin HCl (Clindamycin HCl) 300 Mg Capsule, 300 MG PO TID Prescribed by: ELY ALVARADO on 10/07/23 1421 Fluticasone/Vilanterol (Breo Ellipta 100-25 Mcg INH) 1 Each Blst.w.dev, 1 EACH IH DAILY, (Reported) Entered as Reported by: MARIJA HINSON on 07/06/21 1305 Levothyroxine Sodium (Levothyroxine) 25 Mcg Capsule, 25 MCG PO DAILY, (Reported) Entered as Reported by: MARIJA HINSON on 07/06/21 1305 Tiotropium [place] (Spiriva) 1 Inh Aerp, 1 INH IH DAILY, (Reported) Entered as Reported by: MARIJA HINSON on 07/06/21 1305 Past Aahhpja-Ljduwi-Ayidvp Hx Patient Social History Smoking Status: Former Smoker Alcohol Use?: Yes Substance type: Methamphetamine, Marijuana Surgeries History of Surgeries: Yes Surgeries: Orthopedic Respiratory History of Respiratory Disorde: Yes Respiratory Disorders: Pulmonary Embolism, COPD Cardiovascular History of Cardiac Disorders: Yes Cardiac Disorders: Chronic Edema/Swelling, Hypertension Neurological History of Neurological Disord: Yes Neurological Disorders: Neuropathy Gastrointestinal History of Gastrointestinal Di: Yes Gastrointestinal Disorders: Gastroesophageal Reflux, Hepatitis Musculoskeletal History of Musculoskeletal Dis: Yes Musculoskeletal Disorders: Back Injury, Fractures HEENT History of HEENT Disorders: Yes Cancer History of Cancer: No Psychosocial History of Psychiatric Problem: Yes Behavioral Health Disorders: Personality Disorder Family Medical History Significant Family History: Asthma (sister), COPD (sister and mom) Review of Systems-General Constitutional: No chills, No fever EENTM: hearing loss; No ear pain, No throat pain Respiratory: cough, phlegm (yellow), wheezing Cardiovascular: No chest pain, No palpitations Gastrointestinal: No abdominal pain, No diarrhea, No nausea, No vomiting Genitourinary: No dysuria, No frequency, No hematuria Musculoskeletal: joint pain (knee pain, arthritis), muscle cramps, other (foot pain) Skin: other (L great toe has lesion with blister and swelling and erythema) Psychiatric/Neurological: Emotional Problems; Denies Headache; Numbness (no feeling in feet) Physical Exam-General Problems Physical Exam General Appearance: mild distress, obese (morbidly) Eyes: Bilateral Eye PERRL, Bilateral Eye EOMI HEENT: pharynx normal; No scleral icterus (R), No scleral icterus (L), No pale conjunctivae (R), No pale conjunctivae (L) Neck: non-tender, supple Respiratory: no respiratory distress, no accessory muscle use, wheezing (BL, expiratory) Cardiovascular: regular rate, rhythm, no murmur Gastrointestinal: non tender, soft, hernia (umbilical hernia) Back: no CVA tenderness, no vertebral tenderness Extremities: other (dry swollen R great toe; erythematous, swollen L great toe with black on distal toe with a cut on distal end near toenail. There is a blister on the top of the L great toe near the toenail. Joint looks swollen, there is some softness on the anterior of the L great toe) Neurologic/Psychiatric: alert, oriented x 3 Skin: warm/dry, other (brown discoloration on R anterior LE), tattoos/piercings Lymphatic: no adenopathy (neck or axilla) Data Review Radiology Date of Exam:10/07/23 TOE(S) INDICATION: A 63-year-old male infected wound great toe left foot for last 2 years. COMPARISONS: None FINDINGS: 3 views of the left foot show some degenerative changes of the DIP joint of the left great toe. There is otherwise no evidence of new or healing fractures, bony destruction or remodeling. Overlying soft tissue swelling of the great toe left foot noted. IMPRESSION: Degenerative joint disease at the DIP joint left great toe with overlying soft tissue swelling but no evidence of acute fracture, subluxation, bony destruction or remodeling. Dictated by: Dictated on workstation # [id number] Dict: 10/07/23 0617 Trans: 10/07/23 1106 OSCAR [id number] Interpreted by: BETH WHITE MD Electronically signed by: BETH WHITE MD 10/07/23 1106 Assessment/Plan Assessment/Plan Assessment/Plan L great toe Chronic wound- potential for abscess or cellulitis COPD- oxygen dependent, 2 L of O2 at home Obesity Neuropathy of feet Tobacco use Arthritis * Possibly I &D of L great toe * Wound care consult * Continue oxygen * Prophylatic abx- on vanc and zosyn * will get US of L great toe- if no sign of fluid collection or abscess can do as outpatient procedure Supervisory-Addendum Brief Verification & Attestation Participated in pt care: history, MDM, physical Personally performed: exam, history, MDM, supervision of care Care discussed with: Medical Student Procedures: n/a Verification and Attestation of Medical Student E/M Service A medical student performed and documented this service. I then reviewed and ve rified all information documented by the medical student and made modifications to such information, when appropriate. I personally performed a physical exam, medical decision making and then discussed any differences between the notes and made revisions as necessary to create one note. Shay Boggs , 10/07/23 , 22:10 ZULY MALDONADO Oct 07, 2023 08:05 SHAY BOGGS DO Oct 07, 2023 22:07
[2023-10-07 09:16] VITALS: BP 119/67
[2023-10-07] MEDS ORDERED: RT-Ipratropium/Albuterol NEB 3 ML VIAL INH PRN (09:30)
[2023-10-07] MEDS ORDERED: PIPERACILLIN/Tazobactam 4.5 GM in NS (IVPB) 100 ML 100 ML IV SCH (11:00)
[2023-10-07 11:29] VITALS: BP 132/79
[2023-10-07] MEDS ORDERED: CLIN-144 PO (14:21)
--- NOTE | 2023-10-07 14:23 | Short Stay Summary ---
History of Present Illness History of Present Illness Reason for visit/HPI 63 yo male admitted due to severe toe cellulitis, possible need for surgical debridement. Patient was anxious to leave and declined to stay for further imaging. He did have normal CBC and lactic acid and xray did not have signs of osteomyelitis. Unable to obtain much history as he was agitated about needing to leave. Date of Admission Oct 07, 2023 at 06:13 Date of Discharge Oct 07, 2023 Time Seen by Provider: 12:05 Attending Physician Hernesto Chen DO Admitting Physician Admitting Physician: Prisca Rod DO Attending Physician: Ely Alvarado MD Consult Allergies and Home Medications Allergies Coded Allergies: No Known Drug Allergies (Unverified , 12/30/11) Patient Home Medication List Home Medication List Reviewed: Yes Albuterol Sulfate (Albuterol Sulfate) 1.25 Mg/3 Ml Vial.neb, 1.25 MG INH PRN, (Reported) Entered as Reported by: MARIJA HINSON on 07/06/21 1305 Albuterol Sulfate (Ventolin Hfa) 1 Puff Puff, 2 PUFF IH Q4H PRN for PRN, (Reported) Entered as Reported by: MARIJA HINSON on 07/06/21 1305 Albuterol Sulfate (Proair Digihaler) 90 Mcg Aer.pw.bas, 90 MCG IH OID, (Reported) Entered as Reported by: MARIJA HINSON on 07/06/21 1305 Budesonide/Formoterol Fumarate (Budesonide-Formoterol 160-4.5) 10.2 Gm Hfa.aer.ad, 10.2 GM IH, (Reported) Entered as Reported by: MARIJA HINSON on 07/06/21 1305 Celecoxib (Celecoxib) 200 Mg Capsule, 200 MG PO DAILY, (Reported) Entered as Reported by: MARIJA HINSON on 07/06/21 1305 Clindamycin HCl (Clindamycin HCl) 300 Mg Capsule, 300 MG PO TID Prescribed by: ELY ALVARADO on 10/07/23 1421 Fluticasone/Vilanterol (Breo Ellipta 100-25 Mcg INH) 1 Each Blst.w.dev, 1 EACH IH DAILY, (Reported) Entered as Reported by: MARIJA HINSON on 07/06/21 1305 Levothyroxine Sodium (Levothyroxine) 25 Mcg Capsule, 25 MCG PO DAILY, (Reported) Entered as Reported by: MARIJA HINSON on 07/06/21 1305 Tiotropium [place] (Spiriva) 1 Inh Aerp, 1 INH IH DAILY, (Reported) Entered as Reported by: MARIJA HINSON on 07/06/21 1305 Past Rktwruu-Kmtbvx-Iuaopr Hx Patient Social History Drug of Choice: weed Smoking Status: Current Everyday Smoker 2nd Hand Smoke Exposure: Yes Recent Hopitalizations: No Alcohol Use?: No Substance type: Marijuana Pt feels they are or have been: No Tobacco type used: Cigarettes Immunizations Up To Date Date of Pneumonia Vaccine: Jul 19, 2020 Surgeries Yes (RT ARM; RT LEG) Orthopedic Respiratory Yes (O2 DEPENDENT AT 2L/NC CONTINUOUSLY) Cardiovascular Yes Chronic Edema/Swelling, Hypertension Neurological Yes (? PERIPHERAL NEUROPATHY?) Genitourinary No Gastrointestinal Yes (HEPATITIS B &C--NO TREATMENT) Chronic Constipation, Hepatitis Musculoskeletal Yes Arthritis Endocrine History of Endocrine Disorders: Yes ("PRE-DIABETIC"; MORBID OBESITY) HEENT History of HEENT Disorders: Yes (EYE SURGERY DUE TO TRAUMA) HEENT Disorders: Dysphagia, Tinnitis Hearing Impairment: Hard of Hearing, Hearing Aide Left Cancer No Psychosocial History of Psychiatric Problem: Yes (impulsive compulsive disorder; POLYSUBSTANCE ABUSE) Behavioral Health Disorders: Anxiety Integumentary History of Skin or Integumenta: Yes (CHRONIC FOOT ULCER) Blood Transfusions History of Blood Disorders: No (HEP. C & B) Adverse Reaction to a Blood Tr: No Family Medical History Significant Family History: Asthma (sister), Heart Disease (CHF- mom, sisters), COPD (sister and mom), Diabetes (both grandmothers ), Stroke (father) Other Significan Family Hx: SOCIAL HISTORY: -SMOKES 1 PPD -ETOH--"OCCASIONAL" USE -DRUGS--HX OF IV METH USE, THC USE--CLAIMS "NO USE FOR YEARS" , BUT UDS + FOR METH AND THC 02/28/22 PAST SURGICAL HISTORY:- -TONSILLECTOMY -RIGHT ARM FRACTURE/ORIF -RIGHT ANKLE FRACTURE/ORIF -EYE SURGERY SECONDARY TO TRAUMA STRESS TEST BY DR. FLOWER 10/18/21: 1. Patient tolerated Lexiscan well 2. No significant ischemia or infarction on SPECT images 3. Normal left ventricular size, EF 55% Review of Systems Constitutional: other (unable to obtain due to patient condition) Physical Exam Vital Signs Vital Signs - First Documented 10/07/23 10/07/23 10/07/23 10/07/23 03:47 03:50 06:18 09:16 Temp 37.3 Pulse 91 Resp 20 B/P (MAP) 104/86 Pulse Ox 90 O2 Delivery Room Air O2 Flow Rate 2.00 FiO2 28 Capillary Refill : Less Than 3 Seconds Height, Weight, BMI Height: '" Weight: lbs. oz. kg; 48.38 BMI Method:Stated General Appearance: No Apparent Distress Respiratory: Lungs Clear, Normal Breath Sounds Cardiovascular: Regular Rate, Rhythm, Normal Peripheral Pulses (2+ pedal pulses bilaterally) Gastrointestinal: Normal Bowel Sounds, Non Tender, Soft Extremity: Pedal Edema Neurologic/Psychiatric: Alert, Other (appears anxious) Skin: Other (wound of left great toe with purulent drainage and edema of entire toe) Short Stay Diagnosis Discharge Diagnosis-Short Stay Admission Diagnosis: Cellulitis of left great toe, possible abscess Final Discharge Diagnosis: Same, patient declined to stay for US that was recommended to eval for abscess, however per Surgery recs, if abscess not found, were going to treat with antibiotics only initially regardless, so I did discharge him with clindamycin and will try to obtain ultrasound outpatient. Conclusion Labs Laboratory Tests 10/07/23 04:20: White Blood Count 10.5, Red Blood Count 4.75, Hemoglobin 13.9, Hematocrit 43, Mean Corpuscular Volume 90, Mean Corpuscular Hemoglobin 29, Mean Corpuscular Hemoglobin Concent 33, Red Cell Distribution Width 13.8, Platelet Count 181, Mean Platelet Volume 8.8L, Immature Granulocyte % (Auto) 1, Neutrophils (%) (Auto) 73, Lymphocytes (%) (Auto) 15, Monocytes (%) (Auto) 8, Eosinophils (%) (Auto) 2, Basophils (%) (Auto) 1, Neutrophils # (Auto) 7.7, Lymphocytes # (Auto) 1.6, Monocytes # (Auto) 0.9, Eosinophils # (Auto) 0.2, Basophils # (Auto) 0.1, Immature Granulocyte # (Auto) 0.1, Erythrocyte Sedimentation Rate 32H, Prothrombin Time 16.4H, INR Comment 1.3, Activated Partial Thromboplast Time 36H , Sodium Level 139, Potassium Level 3.9, Chloride Level 104, Carbon Dioxide Level 25, Anion Gap 10, Blood Urea Nitrogen 10, Creatinine 0.86, Estimat Glomerular Filtration Rate 96, BUN/Creatinine Ratio 12, Glucose Level 91, Lactic Acid Level 1.40, Calcium Level 8.7, Corrected Calcium 8.8, Total Bilirubin 0.4, Aspartate Amino Transf (AST/SGOT) 17, Alanine Aminotransferase (ALT/SGPT) 18, Alkaline Phosphatase 77, Total Protein 7.0, Albumin 3.9 10/07/23 10:57: Glucometer 87 Microbiology 10/07/23 Gram Stain - Final, Resulted 10/07/23 Wound Culture, Resulted Pending Conclusion/Plan See final discharge diagnosis ELY ALVARADO MD Oct 07, 2023 14:23
[2023-10-07 14:50] VITALS: BP 132/79
[2023-10-07] MEDS ORDERED: RT-Ipratropium/Albuterol NEB 3 ML VIAL INH SCH (15:00)
[2023-10-07] MEDS ORDERED: VANCOMYCIN 1500MG/300ML PREMIX IV SCH (17:00)
[2023-10-08] MEDS ORDERED: TROUGH ORDER-PHARMACY XX NR (16:00)
== END 2023-10-07 14:55 | disposition home or self-care (01) ==
LOC: EDUNIT# 03:36 → ER 03:41 → 4TH 06:13
PROVIDERS: ADMIT Internal Medicine; ATTEND Family Medicine
DX: L03.032 Cellulitis of left toe (principal); J44.9 Chronic obstructive pulmonary disease, unspecified; E66.9 Obesity, unspecified; M19.90 Unspecified osteoarthritis, unspecified site; E66.01 Morbid (severe) obesity due to excess calories; E11.40 Type 2 diabetes mellitus with diabetic neuropathy, unspecified; I10 Essential (primary) hypertension; Z99.81 Dependence on supplemental oxygen; Z87.891 Personal history of nicotine dependence; Z68.42 Body mass index [BMI] 45.0-49.9, adult
CPT/HCPCS: 36415; 71045; 73660; 80053; 82947; 83605; 85025; 85610; 85652; 85730; 87040; 87070; 87205; 96366; 96376; G0378

== ENCOUNTER 2023-10-12 18:33 | Inpatient (IN) | payer MEDICARE, MEDICAID ==
[~2023-10-12] VITALS: Ht 167.7 cm; Wt 141.6 kg
[~2023-10-12 18:33] MED LIST changes: +CLIN-144 PO
--- NOTE | 2023-10-12 19:03 | History & Physical-Hospitalist ---
KEN HALEY MD,RESIDENT 10/12/23 1903: History of Present Illness HPI/Chief Complaint Pt is a 63 yo male with a medical history significant for COPD, HTN, cellulitis of L great toe, hypothyroidism, who presented to [place] ED for worsening SOB. Pt was admitted to [facility] a couple of days ago for cellulitis of his left great toe, Pt was lost to follow-up so was not seen by PCP or wound care after discharge. He reports that 3 days ago his work of breathing increased and he started to cough persistently, despite his inhalers. He denies CP, headaches, dizziness, fevers. Source: patient Date Seen 10/12/23 Time Seen by a Provider: 09:00 Attending Physician Hernesto Chen DO PCP Admitting Physician: Prisca Palomo DO Attending Physician: Prisca Palomo DO Referring Physician Date of Admission Home Medications & Allergies Home Medications Reviewed patient Home Medication Reconciliation performed by pharmacy medication reconciliations chemical production technician and/or nursing. Patients Allergies have been reviewed. Allergies Allergies Coded Allergies No Known Drug Allergies (Unverified12/30/11) Past Eutigui-Rqbcaz-Zquydq Hx Immunizations Up To Date First/Initial COVID19 Vaccinat: 02/22 Second COVID19 Vaccination Caesar: 11/25 Tetanus Booster (TDap): Unknown Date of Pneumonia Vaccine: Jul 19, 2020 Current Status Primary Language: Grenadian Sensory deficits: Vision impairment, Hearing impairment Past Medical History Surgeries: Orthopedic Pulmonary Embolism, COPD Chronic Edema/Swelling, Hypertension Neuropathy Gastroesophageal Reflux, Hepatitis Back Injury, Fractures Dysphagia, Tinnitis Hearing Impairment: Hard of Hearing, Hearing Aide Left Personality Disorder Blood Disorders: No (HEP. C & B) Adverse Reaction/Blood Tranf: No Family Medical History Asthma, COPD SOCIAL HISTORY: -SMOKES 1 PPD -ETOH--"OCCASIONAL" USE -DRUGS--HX OF IV METH USE, THC USE--CLAIMS "NO USE FOR YEARS" , BUT UDS + FOR METH AND THC 02/28/22 PAST SURGICAL HISTORY:- -TONSILLECTOMY -RIGHT ARM FRACTURE/ORIF -RIGHT ANKLE FRACTURE/ORIF -EYE SURGERY SECONDARY TO TRAUMA STRESS TEST BY DR. FLOWER 10/18/21: 1. Patient tolerated Lexiscan well 2. No significant ischemia or infarction on SPECT images 3. Normal left ventricular size, EF 55% Review of Systems Constitutional: no symptoms reported Respiratory: cough, phlegm, short of breath Cardiovascular: no symptoms reported Gastrointestinal: no symptoms reported Skin: other (skin color change and swelling of left great toe) Physical Exam Physical Exam Vital Signs Vital Signs - First Documented 10/12/23 10/12/23 10/13/23 19:58 20:00 00:00 Temp 36.2 Pulse 73 Resp 28 B/P (MAP) 112/68 (83) Pulse Ox 96 O2 Delivery NIV Bilevel O2 Flow Rate 50.00 FiO2 50 Capillary Refill : Height, Weight, BMI Height: '" Weight: lbs. oz. kg; 48.38 BMI Method:Stated General Appearance: No Apparent Distress Respiratory: Rhonci, Wheezing Cardiovascular: Regular Rate, Rhythm Gastrointestinal: Non Tender, Soft Neurologic/Psychiatric: Alert, Oriented x3, Normal Mood/Affect Skin: Erythema, Other (areas of necrotic-appearing tissue over distal left great toe with underlying edema) Results Results/Procedures Labs Laboratory Tests 10/13/23 05:07 Patient resulted labs reviewed. Assessment/Plan Admission Diagnosis Acute respiratory failure Admission Status: Inpatient Order (span 2 midnights) Reason for Inpatient Admission: Acute respiratory failure Diagnosis/Problems Diagnosis/Problems (1) Acute respiratory failure Assessment & Plan: Likely 2/2 COPD exacerbation vs infection PLAN: MAT protocol Supplemenal O2 as needed, currently on 4L NC BiPAP Decadron 2mg IV q12 Repeat ABG - pH WNL, can continue off BiPAP during the day if Pt desires, recommend resume BiPAP overnight (2) COPD (chronic obstructive pulmonary disease) Assessment & Plan: PLAN: MAT protocol Duonebs BiPAP (3) Mycoplasma pneumonia Assessment & Plan: Previously treated with azithromycin PLAN: Will continue Azithromycin and add Cefepime IV Daily CBC to monitor WBCs (4) Cellulitis and abscess of toe of left foot Status: Acute Assessment & Plan: Cellulitis left great toe, lost to wound care follow-up PLAN: Wound care consult General surgery consult for possible debridement vs possible need for amputation - recommend no surgical intervention at this time, continue with abx See mycoplasma for abx PRISCA PALOMO DO 10/13/23 1558: History of Present Illness HPI/Chief Complaint Chief complaint: Acute hypoxic respiratory failure HPI: This is a 63-year-old male who was just discharged 3 days ago from [facility] who presented to [facility] with shortness of breath found to have volume overload and hypercapnia requiring BiPAP so he met criteria for higher level of care and he was moved over placed in ICU and closely monitored. Source: patient Exam Limitations: no limitations Past Vccfjvo-Hehmwq-Eendli Hx Patient Social History Marrital Status: Employed/Student: retired Smoking Status: Former Smoker Past Medical History Pneumonia, COPD High Cholesterol, Hypertension Review of Systems Constitutional: see HPI Physical Exam Physical Exam General Appearance: No Apparent Distress, Chronically ill Respiratory: Accessory Muscle Use, Decreased Breath Sounds, Rhonci, Wheezing Cardiovascular: Regular Rate, Rhythm Assessment/Plan Admission Diagnosis Assessment: Acute hypoxic respiratory failure Suspected JARETT/OHS Mycoplasma pneumonia Recent hospital stay Left great toe cellulitis Obesity Former smoker Plan: ICU BiPAP Antibiotics Supportive care Admission Status: Inpatient Order (span 2 midnights) Reason for Inpatient Admission: Acute hypoxic respiratory failure KEN HALEY MD,RESIDENT Oct 12, 2023 19:03 PRISCA PALOMO DO Oct 13, 2023 15:58
[2023-10-12 19:58] VITALS: BP 122/74
[2023-10-12] MEDS ORDERED: ONDANSETRON INJECTION 4 MG/2 ML (SDV) IV PRN (20:00)
[2023-10-12] MEDS ORDERED: diphenhydrAMINE INJ 50 MG/ML VIAL IVP PRN (20:00)
[2023-10-12] MEDS ORDERED: NS IV 500 ML 500 ML IV PRN (20:00)
[2023-10-12] MEDS ORDERED: ACETAMINOPHEN 500 MG TABLET PO PRN (20:00)
[2023-10-12] MEDS ORDERED: MELATONIN 3 MG TABLET PO PRN (20:00)
[2023-10-12] MEDS ORDERED: ANTACID SUSPENSION 30 ML UDC PO PRN (20:00)
[2023-10-12] MEDS ORDERED: ONDANSETRON 4 MG ORAL DISSOLVE TABLET PO PRN (20:00)
[2023-10-12] MEDS ORDERED: ACETAMINOPHEN 325 MG TABLET PO PRN (20:00)
[2023-10-12] MEDS ORDERED: CALCIUM CARBONATE 500 MG CHEW TABLET PO PRN (20:00)
[2023-10-12] MEDS ORDERED: MILK OF MAGNESIA 400 MG/5 ML 30 ML UDC PO PRN (20:00)
[2023-10-12] MEDS ORDERED: diphenhydrAMINE 25 MG TABLET PO PRN (20:00)
[2023-10-12] MEDS ORDERED: LACTULOSE SYRUP 10GM/15ML 30ML UDC PO PRN (20:00)
[2023-10-12] MEDS ORDERED: BISACODYL 10 MG SUPPOSITORY PR PRN (20:00)
[2023-10-12 20:26] LABS: ABG BASE EXCESS 3.2 MMOL/L (-2.5-2.5); ABG OXYGEN SATURATION 98 % (94-100); ABG PCO2 51 MMHG (35-45); ABG PH 7.37 (7.37-7.43); ABG PO2 84 MMHG (79-93); ABG TCO2 31.1 MMOL/L (21.0-31.0); INSPIRED O2 50%
[2023-10-12 20:27] LABS: VENTILATOR NO
[2023-10-12] MEDS: inSUlin ASPART 1 UNIT/0.01 ML (PER UNIT) SC SCH (20:59)
[2023-10-12] MEDS: DOCUSATE SODIUM 100 MG CAPSULE PO SCH (20:59)
[2023-10-12] MEDS: SENNOSIDES 8.6 MG TABLET PO SCH (20:59)
[2023-10-12] MEDS: dexAMETHasone INJ 4 MG/ML SDV IV SCH (21:30)
[2023-10-12] MEDS: ENOXAPARIN 40 MG/0.4 ML SYRINGE SC SCH (21:30)
[2023-10-12] MEDS: CEFEPIME INJECTION 1,000 MG in NS (IVPB) 50 ML 50 ML IV SCH (21:30)
[2023-10-12] MEDS: RT-Ipratropium/Albuterol NEB 3 ML VIAL INH SCH (22:58)
[2023-10-12 23:04] VITALS: BP 116/71
[2023-10-12] MEDS ORDERED: VANCOMYCIN INJECTION 1,000 MG in NS (IVPB) 250 ML 250 ML IV ONE (23:30)
[2023-10-12] MEDS ORDERED: CLINDAMYCIN 900 MG/50 ML IVPB 50 ML IV ONE (23:30)
[2023-10-12 23:39] LABS: ABG BASE EXCESS 3.9 MMOL/L (-2.5-2.5); ABG OXYGEN SATURATION 96 % (94-100); ABG PCO2 56 MMHG (35-45); ABG PH 7.35 (7.37-7.43); ABG PO2 78 MMHG (79-93); ABG TCO2 32.6 MMOL/L (21.0-31.0)
[2023-10-12 23:40] LABS: INSPIRED O2 40%; VENTILATOR NO
[2023-10-13 02:53] VITALS: BP 113/67
[2023-10-13] MEDS: RT-Ipratropium/Albuterol NEB 3 ML VIAL INH SCH ×6 (02:53→22:45)
[2023-10-13] MEDS: CEFEPIME INJECTION 1,000 MG in NS (IVPB) 50 ML 50 ML IV SCH ×4 (03:08→21:13)
[2023-10-13 05:28] LABS: BASOPHILS % (AUTO) 0 % (0-10); EOSINOPHILS % (AUTO) 0 % (0-10); HEMATOCRIT 39 % (40-54); HEMOGLOBIN 12.6 g/dL (13.3-17.7); LYMPHOCYTES # (AUTO) 0.5 10^3/uL (1.0-4.0); LYMPHOCYTES % (AUTO) 9 % (12-44); MEAN CORPUSCULAR HEMOGLOBIN 29 pg (25-34); MEAN CORPUSCULAR HGB CONC 32 g/dL (32-36); MEAN CORPUSCULAR VOLUME 90 fL (80-99); MEAN PLATELET VOLUME 9.1 fL (9.0-12.2); MONOCYTES # (AUTO) 0.2 10^3/uL (0.0-1.0); MONOCYTES % (AUTO) 4 % (0-12); NEUTROPHILS # (AUTO) 4.5 10^3/uL (1.8-7.8); NEUTROPHILS % (AUTO) 86 % (42-75); PLATELET COUNT 167 10^3/uL (130-400); WHITE BLOOD COUNT 5.3 10^3/uL (4.3-11.0)
[2023-10-13 05:49] LABS: ALBUMIN 3.5 GM/DL (3.2-4.5); BILIRUBIN,TOTAL 0.2 MG/DL (0.1-1.0); CALCIUM 8.3 MG/DL (8.5-10.1); CREATININE SERUM 0.86 MG/DL (0.60-1.30); MAGNESIUM 2.2 MG/DL (1.6-2.4); PHOSPHORUS 4.1 MG/DL (2.3-4.7); POTASSIUM 4.6 MMOL/L (3.6-5.0); TOTAL PROTEIN 6.6 GM/DL (6.4-8.2)
[2023-10-13] MEDS: MAGNESIUM 1 GM/100 ML IVPB 100 ML IV SCH (06:00)
[2023-10-13] MEDS: POTASSIUM CL 10MEQ/50ML IVPB 50 ML IV SCH (06:00)
[2023-10-13] MEDS: POTASSIUM CHLORIDE 20 MEQ TABLET PO SCH (06:00)
[2023-10-13] MEDS: inSUlin ASPART 1 UNIT/0.01 ML (PER UNIT) SC SCH ×4 (06:50→21:00)
[2023-10-13] MEDS ORDERED: guaiFENesin 600 MG TABLET PO ONE (08:30)
[2023-10-13] MEDS: BENZONATATE 100 MG CAPSULE PO SCH ×4 (08:43→21:14)
[2023-10-13] MEDS: dexAMETHasone INJ 4 MG/ML SDV IV SCH ×2 (08:44→21:14)
[2023-10-13] MEDS: AZITHROMYCIN INJECTION 500 MG in NS (IVPB) 250 ML 250 ML IV SCH (08:46)
[2023-10-13] MEDS: ENOXAPARIN 40 MG/0.4 ML SYRINGE SC SCH ×2 (08:46→21:14)
[2023-10-13] MEDS: SENNOSIDES 8.6 MG TABLET PO SCH ×2 (09:42→21:02)
[2023-10-13] MEDS: DOCUSATE SODIUM 100 MG CAPSULE PO SCH ×2 (09:42→21:02)
[2023-10-13] MEDS: FUROSEMIDE INJECTION 40 MG/4 ML VIAL IVP SCH (09:42)
--- NOTE | 2023-10-13 09:47 | Tele-ICU Progress Note ---
Subjective Date Seen by a Provider: Oct 13, 2023 Time Seen by a Provider: 09:45 Subjective/Events-last exam Tele-ICU Physician, Progress Note Service provided via interactive audio and video telecommunications [facility] syst em to a patient admitted to ICU bed in [facility]. Patient is seen today due to persistent need of ICU care Available chart/ vitals / labs / Images reviewed Video assessment done using teleICU camera, rest of exam as per RN Discussed with RN Hospital course: Pt is a 63 y/o M with PMHx signficiant for COPD/asthma, PE, HTN, GERD, mycoplasma pneumonia, cellulitis of L great toe, hypothyroidism, transferred from OSH for acute hypercapnic/hypoxic respiratory failure likely 2 /2 mycoplasma PNA & COPD/asthma exacerbation. Pt initially admitted at OSH for cellulitis of left great toe however afterwards noted to have worsening pain. Was on azithromycin. In ED antibiotics broadened to cefepime. Gen surgery consulted for debridement vs possible amputation. ABG yesterday notable for elevated CO2 and patient started on BiPAP however refusing to wear. DNI. Also notes severe cough 10/13: No major events overnight. Pt refusing BiPAP and requesting to eat, also with increased cough. antibiotics broadened A/P Toe pain: LIkely cellulitis however given pain out of proportion r/o nec fascitis -Surgery consult -Cont antibiotics (Cefepime/Clindamycin/Azithromycin) Acute hypercapnic resrpiatory failure -No AM gas, ABG ordered -Pt DNI and refusing BiPAP, explained risks and benefits -Will attempt diuresis given congestion on CXR 10/12 -Guanefcisin cough -Hx of COPD? Will order duonebs Q4h prn -Cont steriods Hx of PE -Pt with CT chest performed at OSH neg for PE -Cont ppx lovenoxNo PE on the recent CT chest Lines : periph , (Central Line Necessity Reviewed) Pelaez: Nutrition: HH diet VTE Prophylaxis: lesley 1`30 bid Stress Ulcer Prophylaxis: Plans in collaboration with bedside consultants and IM MDs. Discussed with RN to reach out if any questions or concerns A total of 25 minutes of CC time was devoted to this patient today, required to treat and/or prevent further deterioration of critical care condition ( as above ) I am remotely monitoring this patient from another state. I am unable to do the bedside exam, and history/physical and pertinent information is taken from other notes in the computer and bedside staff Sepsis Event Evaluation Height, Weight, BMI Height: '" Weight: lbs. oz. kg; 50.27 BMI Method:Stated Focused Exam Lactate Level 10/12/23 23:37: Lactic Acid Level 0.53 Exam Exam Patient acknowledged, consented, and participated in this virtual visit which was conducted using real time audio/video Vital Signs Date Time Temp Pulse Resp B/P (MAP) Pulse Ox O2 Delivery O2 Flow Rate FiO2 10/13/23 09:00 90 115/78 (89) 96 Nasal Cannula 6.00 10/13/23 08:00 93 29 117/86 (93) 90 Nasal Cannula 6.00 10/13/23 07:00 82 10/13/23 07:00 80 31 114/67 (82) 89 Nasal Cannula 6.00 10/13/23 06:59 90 Nasal Cannula 6.00 10/13/23 06:00 78 29 127/69 (88) 90 Nasal Cannula 6.00 10/13/23 05:00 76 31 112/67 (82) 91 NIV Bilevel 40.00 10/13/23 04:00 92 NIV Bilevel 40 10/13/23 04:00 77 28 111/71 (84) 91 NIV Bilevel 40.00 10/13/23 03:48 36.6 10/13/23 03:00 71 31 117/78 (91) 90 NIV Bilevel 40.00 10/13/23 02:53 74 31 90 40.00 10/13/23 02:00 73 29 113/67 (82) 92 NIV Bilevel 40.00 10/13/23 01:00 72 30 109/66 (80) 89 NIV Bilevel 40.00 10/13/23 01:00 76 10/13/23 00:00 91 NIV Bilevel 40 10/13/23 00:00 36.2 10/13/23 00:00 71 24 107/74 (85) 90 NIV Bilevel 40.00 10/12/23 23:04 64 29 95 40.00 10/12/23 23:00 65 13 116/71 (86) 93 NIV Bilevel 40.00 10/12/23 22:00 68 27 118/73 (88) 91 NIV Bilevel 40.00 10/12/23 21:06 67 96 40 12/9/23 21:00 71 30 114/66 (82) 92 NIV Bilevel 40.00 10/12/23 20:36 40.00 10/12/23 20:30 66 29 78/67 (71) 95 NIV Bilevel 40.00 10/12/23 20:17 67 10/12/23 20:15 61 15 122/76 (91) 95 NIV Bilevel 50.00 10/12/23 20:00 60 12 112/68 (83) 96 NIV Bilevel 50.00 10/12/23 20:00 93 NIV Bilevel 50 10/12/23 19:58 73 28 96 50.00 I & O 10/13/23 07:00 Intake Total 800 ml Output Total 500 ml Balance 300 ml Height & Weight Height: '" Weight: lbs. oz. kg; 50.27 BMI Method:Stated General Appearance: Mild Distress Results Lab Laboratory Tests 10/13/23 05:07 Assessment/Plan Assessment/Plan . MECHELLE SNYDER MD Oct 13, 2023 09:47
[2023-10-13] MEDS ORDERED: RT-Ipratropium/Albuterol NEB 3 ML VIAL INH SCH (10:00)
[2023-10-13 10:57] LABS: ABG BASE EXCESS 5.8 MMOL/L (-2.5-2.5); ABG OXYGEN SATURATION 96 % (94-100); ABG PCO2 55 MMHG (35-45); ABG PH 7.38 (7.37-7.43); ABG PO2 71 MMHG (79-93); ABG TCO2 34.2 MMOL/L (21.0-31.0)
[2023-10-13 10:58] LABS: INSPIRED O2 40%; VENTILATOR NO
--- NOTE | 2023-10-13 11:01 | Diagnostic Imaging Report ---
EXAMINATION: Chest 1 view HISTORY: Respiratory failure COMPARISON: 10/07/2023 FINDINGS: There is mild edema. No pneumonia. No pleural effusion or pneumothorax. Heart size is normal. IMPRESSION: 1. Mild edema. Dictated by: Dictated on workstation # [id number]
--- NOTE | 2023-10-13 12:04 | CONSULTATION REPORT ---
DATE OF SERVICE: 10/13/2023 ATTENDING PRIMARY CARE PHYSICIAN: Dr. Hernesto Chen. ADMITTING PHYSICIAN: Dr. Prisca Rod. HISTORY OF PRESENT ILLNESS: The patient is a 63-year-old male with multiple medical problems who presented to the emergency department with cough and shortness of breath. He also has a known infection of the left great toe and was recently admitted to [facility] for antibiotics. He is also seen by wound care. He reports that there has been swelling over the area of the left great toe for months now. He did have a recent foot x-ray, which did not show any lytic lesions consistent with osteomyelitis, however, upon examination, there is heaped up and swollen tissue along the dorsal and lateral aspects of the left great toe with a central area of opening. He does have a number of risk factors including a tobacco smoking history as well as use of methamphetamine and THC smoke. PAST MEDICAL HISTORY: COPD, history of pulmonary embolism, bilateral chronic venous insufficiency, hypertension, neuropathy, gastroesophageal reflux disease, history of hepatitis B and C, degenerative joint disease. PAST SURGICAL HISTORY: Tonsillectomy, ORIF right upper extremity and right ankle, eye surgery. ALLERGIES: NO KNOWN DRUG ALLERGIES. MEDICATIONS: Albuterol inhaler 1 puff q.4 hours p.r.n., albuterol breathing treatment 1.2 mg p.r.n., budesonide/formoterol 160-4.5 mg daily, celecoxib 200 mg daily, clindamycin 300 mg t.i.d., fluticasone/vilanterol 100-25 mcg daily, levothyroxine 25 mcg daily, Spiriva 1 puff daily. SOCIAL HISTORY: Positive smoke, greater than 40 pack years, positive THC smoke, positive methamphetamine. FAMILY HISTORY: Noncontributory. VITAL SIGNS: Temperature 36.6, blood pressure 127/69, pulse 79, respirations 29, pulse ox 90% on 6 liters nasal cannula. REVIEW OF SYSTEMS: Well-nourished male, obese male, currently in no acute distress. He is not experiencing any shortness of breath or difficulty breathing. He has had some chest pain as well as productive cough for the past week and a longstanding history of COPD. No cardiac chest pain, palpitations. No diaphoresis. No nausea or vomiting. No diarrhea or constipation. No fever, chills, no recent inadvertent weight loss. All other review of systems negative. PHYSICAL EXAMINATION: CHEST: Expiratory wheezes and rhonchi bilaterally. HEART: Regular. No murmurs. EXTREMITIES: Plus 2/3 bilateral lower extremity edema. Negative Homans sign. HEENT: No scleral icterus. No cervical lymphadenopathy. ABDOMEN: Soft, nontender, nondistended. SKIN: Along the left great toe is a significant amount of acute on chronic edema. There is no fluctuance to indicate any abscess. There is a small opening along the dorsal aspect of the toe with granulation bed. ASSESSMENT AND PLAN: A 63-year-old male with chronic infection of the left great toe, acute on chronic cellulitis of the left great toe. There is possibility of underlying osteomyelitis however, no lesions were detected on x-ray. He currently does have a pneumonia and is not stable for any transfer or any surgical procedures at this time. We will continue with medical management for now and once stable, we would recommend either CT scan or an MRI to further delineate the left great toe for potential osteomyelitis. The patient also does have significant amount of risk factors including smoking as well as methamphetamine, which has caused severe vasoconstriction and his healing rate will be severely compromised. He does have adequate large arterial perfusion with palpable dorsalis pedis as well as posterior tibial pulses bilaterally. Job ID: [id number] DocumentID: [id number] Dictated Date: 10/13/2023 11:36:40 Instrument Adjuster Date: 10/13/2023 12:02:00 Dictated By: RUDY LEONARDO MD MTDD
[2023-10-13 14:43] VITALS: BP 121/60
[2023-10-13 18:52] VITALS: BP 126/75
[2023-10-13 22:45] VITALS: BP 133/82
[2023-10-14 02:39] VITALS: BP 107/93
[2023-10-14] MEDS: RT-Ipratropium/Albuterol NEB 3 ML VIAL INH SCH ×3 (02:39→10:13)
[2023-10-14] MEDS: CEFEPIME INJECTION 1,000 MG in NS (IVPB) 50 ML 50 ML IV SCH ×2 (03:06→08:56)
[2023-10-14 04:54] LABS: BASOPHILS % (AUTO) 0 % (0-10); EOSINOPHILS % (AUTO) 0 % (0-10); HEMATOCRIT 40 % (40-54); HEMOGLOBIN 12.6 g/dL (13.3-17.7); LYMPHOCYTES # (AUTO) 0.7 10^3/uL (1.0-4.0); LYMPHOCYTES % (AUTO) 9 % (12-44); MEAN CORPUSCULAR HEMOGLOBIN 29 pg (25-34); MEAN CORPUSCULAR HGB CONC 32 g/dL (32-36); MEAN CORPUSCULAR VOLUME 91 fL (80-99); MEAN PLATELET VOLUME 8.9 fL (9.0-12.2); MONOCYTES # (AUTO) 0.7 10^3/uL (0.0-1.0); MONOCYTES % (AUTO) 9 % (0-12); NEUTROPHILS # (AUTO) 6.9 10^3/uL (1.8-7.8); NEUTROPHILS % (AUTO) 82 % (42-75); PLATELET COUNT 184 10^3/uL (130-400); WHITE BLOOD COUNT 8.5 10^3/uL (4.3-11.0)
[2023-10-14 05:11] LABS: ABG BASE EXCESS 9.1 MMOL/L (-2.5-2.5); ABG OXYGEN SATURATION 97 % (94-100); ABG PCO2 58 MMHG (35-45); ABG PO2 84 MMHG (79-93); ABG TCO2 37.7 MMOL/L (21.0-31.0)
[2023-10-14 05:12] LABS: INSPIRED O2 6L; VENTILATOR NO
[2023-10-14 05:16] LABS: ALBUMIN 3.6 GM/DL (3.2-4.5); BILIRUBIN,TOTAL 0.2 MG/DL (0.1-1.0); CALCIUM 8.3 MG/DL (8.5-10.1); CREATININE SERUM 0.86 MG/DL (0.60-1.30); MAGNESIUM 2.3 MG/DL (1.6-2.4); PHOSPHORUS 3.2 MG/DL (2.3-4.7); TOTAL PROTEIN 6.7 GM/DL (6.4-8.2)
[2023-10-14] MEDS: POTASSIUM CL 10MEQ/50ML IVPB 50 ML IV SCH (06:14)
[2023-10-14] MEDS: inSUlin ASPART 1 UNIT/0.01 ML (PER UNIT) SC SCH ×2 (06:14→11:16)
[2023-10-14] MEDS: POTASSIUM CHLORIDE 20 MEQ TABLET PO SCH (06:14)
[2023-10-14] MEDS: MAGNESIUM 1 GM/100 ML IVPB 100 ML IV SCH (06:14)
--- NOTE | 2023-10-14 07:58 | Progress Note ---
Subjective Date Seen by a Provider: Oct 14, 2023 Time Seen by a Provider: 07:58 Subjective/Events-last exam Pt is a 63 yo male with a medical history significant for COPD, HTN, cellulitis of L great toe, hypothyroidism, who presented to [place] ED for worsening SOB on 10/12. Pt was admitted to [facility] a couple of days ago for cellulitis of his left great toe. Pt was lost to follow-up so was not seen by PCP or wound care after discharge. He reports that 3 days ago his work of breathing increased and he started to cough persistently, despite his inhalers. He denies CP, headaches, dizziness, fevers. Found to have volume overload and hypercapnia requiring BiPAP so he met criteria for higher level of care and he was moved over to [facility], placed in ICU and closely monitored. WBC was 5.3 yesterday, 8.5 today. Hgb stable at 12.6. ABG today = 7.40, 58 pCO2 (H), 84 O2, HCO3 36 (H), 37.7 (H), 97%, 9.1 base excess (H) On azirthrymocin, lasix, dueoneb, cefepime, insulin SS, lorazepam Focused Exam Lactate Level 10/12/23 23:37: Lactic Acid Level 0.53 Objective Exam Last Set of Vital Signs Vital Signs Date Time Temp Pulse Resp B/P (MAP) Pulse Ox O2 Delivery O2 Flow Rate FiO2 10/14/23 07:54 37.6 10/14/23 06:54 92 Nasal Cannula 6.00 10/14/23 06:00 67 23 10/13/23 23:59 40 Capillary Refill : I&O Intake and Output 10/14/23 00:00 Intake Total 3335 ml Output Total 3300 ml Balance 35 ml Intake Oral 2985 ml IV Total 350 ml Output Urine Total 3300 ml Results Lab Laboratory Tests 10/13/23 10:28: Glucometer 113H 10/13/23 10:50: Arterial Blood pH 7.38, Arterial Blood Partial Pressure CO2 55H, Arterial Blood Partial Pressure O2 71L, Arterial Blood HCO3 33H, Arterial Blood Total CO2 34.2H , Arterial Blood Oxygen Saturation 96, Arterial Blood Base Excess 5.8H, Blood Gas Ventilator Setting NO, Blood Gas Inspired Oxygen 40% 10/13/23 15:49: Glucometer 122H 10/13/23 21:15: Glucometer 143H 10/14/23 04:37: White Blood Count 8.5, Red Blood Count 4.36, Hemoglobin 12.6L, Hematocrit 40, Mean Corpuscular Volume 91, Mean Corpuscular Hemoglobin 29, Mean Corpuscular Hemoglobin Concent 32, Red Cell Distribution Width 13.5, Platelet Count 184, Mean Platelet Volume 8.9L, Immature Granulocyte % (Auto) 1, Neutrophils (%) (Auto) 82H, Lymphocytes (%) (Auto) 9L, Monocytes (%) (Auto) 9, Eosinophils (%) (Auto) 0, Basophils (%) (Auto) 0, Neutrophils # (Auto) 6.9, Lymphocytes # (Auto) 0.7L, Monocytes # (Auto) 0.7, Eosinophils # (Auto) 0.0, Basophils # (Auto) 0.0, Immature Granulocyte # (Auto) 0.1, Sodium Level 137, Potassium Level 5.0, Chloride Level 100, Carbon Dioxide Level 28, Anion Gap 9, Blood Urea Nitrogen 19H, Creatinine 0.86, Estimat Glomerular Filtration Rate 96, BUN/Creatinine Ratio 22, Glucose Level 123H, Calcium Level 8.3L, Corrected Calcium 8.6, Phosphorus Level 3.2, Magnesium Level 2.3, Total Bilirubin 0.2, Aspartate Amino Transf (AST/SGOT) 22, Alanine Aminotransferase (ALT/SGPT) 20, Alkaline Phosphatase 58, Total Protein 6.7, Albumin 3.6 10/14/23 05:00: Arterial Blood pH 7.40, Arterial Blood Partial Pressure CO2 58H, Arterial Blood Partial Pressure O2 84, Arterial Blood HCO3 36H, Arterial Blood Total CO2 37.7H, Arterial Blood Oxygen Saturation 97, Arterial Blood Base Excess 9.1H, Blood Gas Ventilator Setting NO, Blood Gas Inspired Oxygen 6L Microbiology 10/12/23 Blood Culture - Preliminary, Resulted 10/12/23 MRSA Screen - Final, Complete MRSA not isolated Assessment/Plan Assessment/Plan Assess & Plan/Chief Complaint Acute hypoxic hypercapnic resp failure - BiPAP? - supplemental O2 as needed - Decadron 2 mg - ABG Left great toe cellulitis Obesity Hx of myoplasma pneumonia SUELLEN VINCENT Oct 14, 2023 07:58
[2023-10-14] MEDS: AZITHROMYCIN INJECTION 500 MG in NS (IVPB) 250 ML 250 ML IV SCH (08:55)
[2023-10-14] MEDS: ENOXAPARIN 40 MG/0.4 ML SYRINGE SC SCH (08:56)
[2023-10-14] MEDS: FUROSEMIDE INJECTION 40 MG/4 ML VIAL IVP SCH (08:56)
[2023-10-14] MEDS: BENZONATATE 100 MG CAPSULE PO SCH (08:56)
[2023-10-14] MEDS: SENNOSIDES 8.6 MG TABLET PO SCH (08:56)
[2023-10-14] MEDS: DOCUSATE SODIUM 100 MG CAPSULE PO SCH (08:56)
[2023-10-14] MEDS: dexAMETHasone INJ 4 MG/ML SDV IV SCH (08:56)
[2023-10-14] MEDS ORDERED: HALOPERIDOL INJECTION 5 MG/ML VIAL IM PRN (11:00)
--- NOTE | 2023-10-14 11:07 | Progress Note - Hospitalist ---
SUELLEN VINCENT 10/14/23 1107: Subjective HPI/CC On Admission Date Seen by Provider: Oct 14, 2023 Time Seen by Provider: 11:01 Chief complaint: Acute hypoxic respiratory failure HPI: This is a 63-year-old male who was just discharged 3 days ago from [facility] who presented [place] [facility] [place] shortness of breath found to have volume overload and hypercapnia requiring BiPAP so he met criteria for higher level of care and he was moved over placed in ICU and closely monitored. Subjective/Events-last exam Pt is a 63 yo male with a medical history significant for COPD, HTN, cellulitis of L great toe, hypothyroidism, who presented to [place] [facility] for worsening SOB on 10/12. Pt was admitted to [facility] a couple of days ago for cellulitis of his left great toe. Pt was lost to follow-up so was not seen by PCP or wound care after discharge. He reports that 3 days ago his work of breathing increased and he started to cough persistently, despite his inhalers. He denies CP, headaches, dizziness, fevers. Found to have volume overload and hypercapnia requiring BiPAP so he met criteria for higher level of care and he was moved over to [facility], placed in ICU and closely monitored. Today, upon initial assessment, pt is lying in bed naked and uncovered. He is AxOx3 but states that he would like to go home AMA despite not breathing very well w/ wheezing and SOB on 6 L O2 via nasal cannula high flow. He is on O2 at baseline usually 2 L. He reports that he has been coughing up clear phelgm and notes significant [place]. He states that he has not been moving around much. He reports no BM for the last several days and denies any nausea. He denies any fever or night sweats. Review of Systems General: No Chills, No Night Sweats HEENT: No Head Aches, No Visual Changes Pulmonary: Dyspnea, Cough Cardiovascular: Orthopnea, Paroxysmal Noc. Dyspnea; No: Chest Pain, Palpitations Gastrointestinal: Constipation; No: Nausea, Melena Genitourinary: No Dysuria, No Incontinence Musculoskeletal: back pain; No: neck pain Neurological: No: Change in speech, Confusion Focused Exam Lactate Level 10/12/23 23:37: Lactic Acid Level 0.53 Objective Exam Vital Signs Vital Signs Date Time Temp Pulse Resp B/P (MAP) Pulse Ox O2 Delivery O2 Flow Rate FiO2 10/14/23 10:14 Nasal Cannula 6.00 10/14/23 09:00 102 35 92 10/14/23 07:54 37.6 10/13/23 23:59 40 Capillary Refill : General Appearance: No Apparent Distress, Anxious, Chronically ill, Obese HEENT: PERRL/EOMI, TMs Normal Neck: Normal Inspection, Non Tender, Supple Respiratory: Chest Non Tender, No Accessory Muscle Use, No Respiratory Distress, Crackles, Wheezing Cardiovascular: Regular Rate, Rhythm, Normal Peripheral Pulses Gastrointestinal: Non Tender, Soft Extremity: Non Tender, No Calf Tenderness, No Pedal Edema Neurologic/Psychiatric: Alert, Oriented x3, No Motor/Sensory Deficits, Other (abnormal behavior) Skin: Normal Color, Warm/Dry Results/Procedures Lab Laboratory Tests 10/14/23 04:37 Patient resulted labs reviewed. Imaging: Reviewed Imaging Report Assessment/Plan Assessment and Plan Assess & Plan/Chief Complaint Acute hypoxic hypercapnic respiratory failure COPD on O2 - Wheezing on physical exam - O2 on 6 L nasal cannula high flow. 92-95%. Baseline on O2 2 L at all times - Decadron 2 mg - Duoneb - Cefepime, azithromycin - Lasix - CXR 10/13/23- significant for mild edema. No pneumonia - WBC is nl today at 8.5. Was 5.3 yesterday. Acute on chronic left great toe cellulitis - WBC is nl today at 8.5. Was 5.3 yesterday. - No evidence of lesions on Xray that would suggest osteomyelitis - General surgery consultation Hypothyroidism - Levothyroxine 25 mcg DM - Sliding scale insulin Agitation - Pt became agitated about leaving AMA today despite clinical instability. Does not have O2 with him but still wishes to leave AMA. contacted and she is coming to hospital - Haloperidol and lorazepam Obesity Hx of myoplasma pneumonia PRISCA PALOMO DO 10/15/23 0446: Subjective Subjective/Events-last exam Patient contemplating leaving AMA Becoming agitated Appears to be oriented x 3 Review of Systems General: Fatigue, Malaise Objective Exam General Appearance: No Apparent Distress, Anxious, Chronically ill, Obese Respiratory: No Accessory Muscle Use, No Respiratory Distress, Crackles, Wheezing Cardiovascular: Regular Rate, Rhythm Assessment/Plan Assessment and Plan Assess & Plan/Chief Complaint Patient will leave AMA Supervisory-Addendum Brief Verification & Attestation Participated in pt care: history, MDM, physical Personally performed: exam, history, MDM, supervision of care Care discussed with: Medical Student Procedures: n/a Results interpretation: Verified all documentation Verification and Attestation of Medical Student E/M Service A medical student performed and documented this service in my presence. I reviewed and verified all information documented by the medical student and made modifications to such information, when appropriate. I personally performed the physical exam and medical decision making. Prisca Palomo, Oct 15, 2023,04:44 SUELLEN VINCENT Oct 14, 2023 11:07 PRISCA PALOMO DO Oct 15, 2023 04:46
--- NOTE | 2023-10-14 12:44 | Discharge Summary ---
Discharge Summary Hospital Course Was the Problem List Reviewed?: Yes Problems/Dx: (1) Acute respiratory failure (2) COPD (chronic obstructive pulmonary disease) (3) Mycoplasma pneumonia (4) Cellulitis and abscess of toe of left foot Status: Acute Hospital Course Date of Admission: Oct 12, 2023 at 18:42 Admission Diagnosis : Family Physician/Provider: [facility] Date of Discharge: 10/14/23 Discharge Diagnosis: [ ] Hospital Course: Patient had an uneventful hospital course after he was moved from [facility] to [facility] due to higher level of care needed with BiPAP. Patient responded to IV antibiotics. Overall patient remained stable but still undergoing aggressive care and he decided to leave AGAINST MEDICAL ADVICE. Labs and Pending Lab Test: Laboratory Tests 10/13/23 15:49: Glucometer 122H 10/13/23 21:15: Glucometer 143H 10/14/23 04:37: White Blood Count 8.5, Red Blood Count 4.36, Hemoglobin 12.6L, Hematocrit 40, Mean Corpuscular Volume 91, Mean Corpuscular Hemoglobin 29, Mean Corpuscular Hemoglobin Concent 32, Red Cell Distribution Width 13.5, Platelet Count 184, Mean Platelet Volume 8.9L, Immature Granulocyte % (Auto) 1, Neutrophils (%) (Auto) 82H, Lymphocytes (%) (Auto) 9L, Monocytes (%) (Auto) 9, Eosinophils (%) (Auto) 0, Basophils (%) (Auto) 0, Neutrophils # (Auto) 6.9, Lymphocytes # (Auto) 0.7L, Monocytes # (Auto) 0.7, Eosinophils # (Auto) 0.0, Basophils # (Auto) 0.0, Immature Granulocyte # (Auto) 0.1, Sodium Level 137, Potassium Level 5.0, Chloride Level 100, Carbon Dioxide Level 28, Anion Gap 9, Blood Urea Nitrogen 19H, Creatinine 0.86, Estimat Glomerular Filtration Rate 96, BUN/Creatinine Ratio 22, Glucose Level 123H, Calcium Level 8.3L, Corrected Calcium 8.6, Phosphorus Level 3.2, Magnesium Level 2.3, Total Bilirubin 0.2, Aspartate Amino Transf (AST/SGOT) 22, Alanine Aminotransferase (ALT/SGPT) 20, Alkaline Phosphatase 58, Total Protein 6.7, Albumin 3.6 10/14/23 05:00: Arterial Blood pH 7.40, Arterial Blood Partial Pressure CO2 58H, Arterial Blood Partial Pressure O2 84, Arterial Blood HCO3 36H, Arterial Blood Total CO2 37.7H, Arterial Blood Oxygen Saturation 97, Arterial Blood Base Excess 9.1H, Blood Gas Ventilator Setting NO, Blood Gas Inspired Oxygen 6L 10/14/23 11:12: Glucometer 122H Microbiology 10/14/23 Urine Culture - Preliminary, Resulted 10/12/23 Blood Culture - Preliminary, Resulted 10/12/23 MRSA Screen - Final, Complete MRSA not isolated Home Meds Active Clindamycin HCl 300 Mg Capsule 300 Mg PO TID Reported Spiriva (Tiotropium [place]) 1 Inh Aerp 1 Inh IH DAILY Levothyroxine (Levothyroxine Sodium) 25 Mcg Capsule 25 Mcg PO DAILY Breo Ellipta 100-25 Mcg INH (Fluticasone/Vilanterol) 1 Each Blst.w.dev 1 Each IH DAILY Celecoxib 200 Mg Capsule 200 Mg PO DAILY Budesonide-Formoterol 160-4.5 (Budesonide/Formoterol Fumarate) 10.2 Gm Hfa.aer.ad 10.2 Gm IH Proair Digihaler (Albuterol Sulfate) 90 Mcg Aer.pw.bas 90 Mcg IH OID Ventolin Hfa (Albuterol Sulfate) 1 Puff Puff 2 Puff IH Q4H PRN 1 PUFF = 90 MCG Albuterol Sulfate 1.25 Mg/3 Ml Vial.neb 1.25 Mg INH PRN Assessment/Pt Instructions Continue supportive care as an outpatient since he is left AMA Discharge Planning: <30 minutes discharge planning Discharge Physical Examination Vital Signs Vital Signs Date Time Temp Pulse Resp B/P (MAP) Pulse Ox O2 Delivery O2 Flow Rate FiO2 10/14/23 11:26 37.4 10/14/23 10:14 Nasal Cannula 6.00 10/14/23 10:00 95 13 89 10/13/23 23:59 40 Allergies: Coded Allergies: No Known Drug Allergies (Unverified , 12/30/11) Discharge Summary Date of Admission Oct 12, 2023 at 18:42 Date of Discharge Oct 14, 2023 at 11:40 Admission Diagnosis Assessment: Acute hypoxic respiratory failure Suspected JARETT/OHS Mycoplasma pneumonia Recent hospital stay Left great toe cellulitis Obesity Former smoker Plan: ICU BiPAP Antibiotics Supportive care Discharge Diagnosis (1) Acute respiratory failure Assessment & Plan: Likely 2/2 COPD exacerbation vs infection PLAN: MAT protocol Supplemenal O2 as needed, currently on 4L NC BiPAP Decadron 2mg IV q12 Repeat ABG - pH WNL, can continue off BiPAP during the day if Pt desires, recommend resume BiPAP overnight (2) COPD (chronic obstructive pulmonary disease) Assessment & Plan: PLAN: MAT protocol Duonebs BiPAP (3) Mycoplasma pneumonia Assessment & Plan: Previously treated with azithromycin PLAN: Will continue Azithromycin and add Cefepime IV Daily CBC to monitor WBCs (4) Cellulitis and abscess of toe of left foot Status: Acute Assessment & Plan: Cellulitis left great toe, lost to wound care follow-up PLAN: Wound care consult General surgery consult for possible debridement vs possible need for amputation - recommend no surgical intervention at this time, continue with abx See mycoplasma for abx VENANCIO PALOMO DO Oct 14, 2023 12:44
== END 2023-10-14 11:40 | disposition left against medical advice (07) | DRG 193 ==
LOC: ICU 18:42
PROVIDERS: ADMIT Internal Medicine; ATTEND Internal Medicine
PROC: 5A09357 Assistance with Respiratory Ventilation, Less than 24 Consecutive Hours, Continuous Positive Airway Pressure (ICD-10-PCS; principal; 2023-10-12)
PROC: 5A0935A Assistance with Respiratory Ventilation, Less than 24 Consecutive Hours, High Flow/Velocity Cannula (ICD-10-PCS; 2023-10-13)
DX: J15.7 Pneumonia due to Mycoplasma pneumoniae (principal); J96.01 Acute respiratory failure with hypoxia; J96.02 Acute respiratory failure with hypercapnia; J44.0 Chronic obstructive pulmonary disease with (acute) lower respiratory infection; J44.1 Chronic obstructive pulmonary disease with (acute) exacerbation; L03.032 Cellulitis of left toe; Z66 Do not resuscitate; E66.9 Obesity, unspecified; Z87.891 Personal history of nicotine dependence; G47.33 Obstructive sleep apnea (adult) (pediatric); E03.9 Hypothyroidism, unspecified; R45.1 Restlessness and agitation; Z86.711 Personal history of pulmonary embolism; I87.2 Venous insufficiency (chronic) (peripheral); E11.40 Type 2 diabetes mellitus with diabetic neuropathy, unspecified; K21.9 Gastro-esophageal reflux disease without esophagitis; I10 Essential (primary) hypertension; M19.90 Unspecified osteoarthritis, unspecified site
CPT/HCPCS: 36415; 36600; 71045; 80053; 82805; 82947; 83605; 83735; 84100; 85025; 87040; 87081; 87088; 93005; 94640; 94660